=== PATIENT | male | born 1975 | race Caucasian/White ===

== ENCOUNTER 2016-09-12 06:55 | Emergency (ER) | payer MEDICAID ==
[2016-09-12 07:03] VITALS: RESP 16
--- NOTE | 2016-09-12 08:11 | C.PDOC ---
History Of Present Illness 40-year-old male, presents to the emergency department with complaints of left- upper quadrant abdominal pain associated with nausea that started two hours ago. Patient states he took Tylenol#3 last night, which was given to him by pain management. He denies vomiting, diarrhea, fevers/chills, shortness of breath, chest pain, back pain, dizziness. Time Seen by Provider: 09/12/16 07:11 Chief Complaint (Nursing): Abdominal Pain History Per: Patient History/Exam Limitations: no limitations Severity: Mild Location Of Pain/Discomfort: LUQ Quality Of Discomfort: "Pain" Associated Symptoms: Nausea. denies: Vomiting, Diarrhea Past Medical History Reviewed: Historical Data, Nursing Documentation, Vital Signs Vital Signs: Last Vital Signs Temp 97.7 F 09/12/16 08:15 Pulse 74 09/12/16 08:15 Resp 16 09/12/16 08:15 BP 117/69 09/12/16 08:15 Pulse Ox 97 09/12/16 09:00 - Medical History PMH: Back Problems - [facility] Procedures INJECT/INFUSE NEC (09/11/14) Family History: States: No Known Family Hx - Social History Hx Tobacco Use: Yes Hx Alcohol Use: Yes Hx Substance Use: Yes - Immunization History Hx Tetanus Toxoid Vaccination: Yes Hx Influenza Vaccination: Yes Hx Pneumococcal Vaccination: Yes Review Of Systems Except As Marked, All Systems Reviewed And Found Negative. Constitutional: Negative for: Fever, Chills Cardiovascular: Negative for: Chest Pain, Palpitations Respiratory: Negative for: Cough, Shortness of Breath Gastrointestinal: Positive for: Nausea, Abdominal Pain. Negative for: Vomiting , Diarrhea, Constipation Musculoskeletal: Negative for: Back Pain Skin: Negative for: Rash Neurological: Negative for: Headache, Dizziness Physical Exam - Physical Exam Appears: Well, Non-toxic, No Acute Distress Skin: Warm, Dry, No Rash Eye(s): bilateral: Normal Inspection Oral Mucosa: Moist Chest: Symmetrical Cardiovascular: Rhythm Regular Respiratory: Normal Breath Sounds, No Rales, No Rhonchi, No Wheezing Gastrointestinal/Abdominal: Bowel Sounds, Soft, Tenderness (MILD, EPIGASTRIC/LUQ ), No Guarding, No Rebound, Other ((-)McBurney's. (-)Domingo's.) Back: No CVA Tenderness Extremity: Normal ROM Neurological/Psych: Oriented x3 ED Course And Treatment O2 Sat by Pulse Oximetry: 97 (RA) Pulse Ox Interpretation: Normal Progress Note: Plan: Pt given PO Zofran, PO Pepcid, and IM Bentyl. Pt PO challenged. Reevaluation Time: 08:10 Reassessment Condition: Improved (Patient reassessed, is resting comfortably, in no current pain/distress. He states he is feeling better. On exam, abdomen is soft and nontender. Patient given rxs for pepcid and zofran, and was instructed to stop taking tylenol#3 and follow up with pain management for medication change. He understands he should return to ED if symptoms worsen.) Disposition Counseled Patient/Family Regarding: Diagnosis, Need For Followup, Rx Given - Disposition Referrals: Shaik Ortiz MD [Staff Provider] - Disposition: HOME/ ROUTINE Disposition Time: 08:10 Condition: STABLE Additional Instructions: FOLLOW UP WITH YOUR PAIN MANAGEMENT DOCTOR FOR POSSIBLE MEDICATION CHANGE USE MEDICATION NEEDED RETURN TO ER IF SYMPTOMS WORSEN Prescriptions: Famotidine [Pepcid] 20 mg PO BID PRN #15 tab PRN Reason: abdominal Ondansetron [Zofran Odt] 4 mg PO Q8 PRN #10 odt PRN Reason: Nausea/Vomiting Forms: General Discharge Instructions Print Language: GHANAIAN - POA Present On Arrival: None - Clinical Impression Clinical Impression: Abdominal pain, Nausea, Medication side effect - Scribe Statement The provider has reviewed the documentation as recorded by the Ilsa Prather All medical record entries made by the Scribe were at my direction and personally dictated by me. I have reviewed the chart and agree that the record accurately reflects my personal performance of the history, physical exam, medical decision making, and the department course for this patient. I have also personally directed, reviewed, and agree with the discharge instructions and disposition.
[2016-09-12 08:51] VITALS: BP 117/69; PULSE 74; TEMP 97.7
[2016-09-12 08:54] VITALS: O2SAT 97
== END 2016-09-12 08:16 | disposition home or self-care (01) ==
LOC: C.ER 06:55
DX: R10.12 Left upper quadrant pain (principal); R11.0 Nausea; T40.2X5A Adverse effect of other opioids, initial encounter; Y92.009 Unspecified place in unspecified non-institutional (private) residence as the place of occurrence of the external cause
CPT/HCPCS: 96372; 99285; J0500

== ENCOUNTER 2016-10-02 17:22 | Emergency (ER) | payer MEDICAID ==
[2016-10-02] MEDS ORDERED: Naloxone 0.4 mg/ml Inj (Adult) ONE (17:30)
[2016-10-02] MEDS ORDERED: Sodium Chloride 0.9% 1,000 ML IV ONE (17:43)
[2016-10-02] MEDS ORDERED: Naloxone 0.4 mg/ml Inj (Adult) IVP STA (17:43)
[2016-10-02 17:44] VITALS: BMI 25.1
[2016-10-02 17:52] LABS: BASO % 0.3 % (0.0-2.0); EOS # 0.1 K/uL (0.0-0.7); EOS % 0.9 % (0.0-4.0); HEMATOCRIT 49.5 % (35.0-51.0); LYMPH # 1.6 K/uL (1.0-4.3); LYMPH % 13.5 % (20.0-40.0); MEAN CORPUSCULAR HGB CONC 32.6 g/dL (33.0-37.0); MEAN PLATELET VOLUME 8.9 fL (7.2-11.7); MONO % 8.4 % (0.0-10.0); RED CELL DISTRIBUTION WIDTH 13.4 % (11.5-14.5)
[2016-10-02 17:53] LABS: MEAN CELL VOLUME 95.1 fL (80.0-94.0); WHITE BLOOD COUNT 11.6 K/uL (4.8-10.8)
[2016-10-02 17:59] LABS: CHLORIDE 96 mmol/L (98-107); POTASSIUM 4.1 mmol/L (3.6-5.2); SODIUM 136 mmol/L (132-148)
[2016-10-02 18:01] LABS: GFR AFRICAN-AMERICAN > 60
[2016-10-02 18:02] LABS: ALB/GLOB RATIO 1.2 (1.0-2.1); ALKALINE PHOSPHATASE 58 U/L (38-126); ALT/SGPT 29 U/L (21-72); AST/SGOT 33 U/L (17-59); BILIRUBIN,TOTAL 0.6 mg/dL (0.2-1.3); BLOOD UREA NITROGEN 13 mg/dL (9-20); CALCIUM 7.7 mg/dl (8.6-10.4); CARBON DIOXIDE 25 mmol/L (22-30); GLUCOSE,RANDOM 220 mg/dL (75-110); TOTAL PROTEIN 7.9 g/dL (6.3-8.3)
[2016-10-02 18:03] LABS: ALCOHOL SERUM < 10 mg/dl (0-10)
[2016-10-02 18:53] VITALS: RESP 16
[2016-10-02 19:05] LABS: RBC URINE 3 /hpf (0-3); URINE BACTERIA RARE (<OCC); URINE BILIRUBIN NEGATIVE (NEGATIVE); URINE BLOOD NEGATIVE (NEGATIVE); URINE COLOR Yellow (YELLOW); URINE GLUCOSE (UA) NORMAL (Normal); URINE KETONE NEGATIVE (NEGATIVE); URINE LEUKOCYTE ESTERASE NEG Leu/uL (Negative); URINE PROTEIN 1+ mg/dL (NEGATIVE)
[2016-10-02 19:10] LABS: WBC URINE 5 /hpf (0-5)
[2016-10-02 20:22] VITALS: BP 93/63; PULSE 82; TEMP 98.3; O2SAT 96
--- NOTE | 2016-10-02 20:49 | C.PDOC ---
History Of Present Illness 40 y/o male presents to emergency department via BLS, with ventilations being assisted, who reportedly collapsed at doctor's office just prior to arrival. Patient was given Narcan 2mg intranasally by EMS. On arrival to emergency department, patient woke up, but is still somnolent. Nasal trumpet applied by EMS. Chief Complaint (Nursing): Substance Abuse History Per: EMS History/Exam Limitations: no limitations Onset/Duration Of Symptoms: Hrs Current Symptoms Are (Timing): Better Recent travel outside of the [place]: No Past Medical History Reviewed: Historical Data, Nursing Documentation, Vital Signs Vital Signs: Last Vital Signs Temp 98.3 F 10/02/16 20:21 Pulse 82 10/02/16 20:21 Resp 16 10/02/16 20:21 BP 93/63 L 10/02/16 20:21 Pulse Ox 96 10/02/16 20:48 - Medical History PMH: Back Problems - [facility] Procedures INJECT/INFUSE NEC (09/11/14) Family History: States: Unknown Family Hx - Social History Hx Tobacco Use: Yes Hx Alcohol Use: Yes Hx Substance Use: Yes - Immunization History Hx Tetanus Toxoid Vaccination: Yes Hx Influenza Vaccination: Yes Hx Pneumococcal Vaccination: Yes Review Of Systems Except As Marked, All Systems Reviewed And Found Negative. Constitutional: Negative for: Fever, Chills Cardiovascular: Negative for: Chest Pain, Palpitations Respiratory: Negative for: Cough, Shortness of Breath, Wheezing Gastrointestinal: Negative for: Nausea, Vomiting Skin: Negative for: Rash Neurological: Negative for: Dizziness Physical Exam - Physical Exam Appears: Non-toxic, Other (somnolent) Skin: Warm, Dry Head: Atraumatic, Normacephalic Eye(s): bilateral: PERRL, EOMI, Other (pinpoint pupils) Nose: Other (small ammount of blood in left nare, secondary to nasal trumpet) Oral Mucosa: Moist Neck: Supple Chest: Symmetrical Cardiovascular: Rhythm Regular Respiratory: Normal Breath Sounds, No Rales, No Rhonchi, No Wheezing Gastrointestinal/Abdominal: Soft, No Tenderness Back: Normal Inspection Extremity: Normal ROM, Capillary Refill (< 2 sec. ) Neurological/Psych: Oriented x3 ED Course And Treatment - Laboratory Results Result Diagrams: 10/02/16 17:48 10/02/16 17:48 ECG: Interpreted By Me ECG Rhythm: Sinus Rhythm Interpretation Of ECG: normal axis, normal interval, no prolonged QT Rate From EC (bpm) O2 Sat by Pulse Oximetry: 96 (RA) Pulse Ox Interpretation: Normal Medical Decision Making Medical Decision Making: Plan: * 0.4 mg Narcan IVP * bloodwork * IVFs * Reassess Progress Notes: Patient given Narcan 0.4 mg IVP, with positive result. Disposition - [facility] - Disposition: HOME/ ROUTINE Disposition Time: 19:50 Condition: IMPROVED Additional Instructions: Thank you for letting us take care of you today. Your provider was Dr. Deleon. You were treated for drug abuse. The emergency medical care you received today was directed at your acute symptoms. If you were prescribed any medication, please fill it and take as directed. It may take several days for your symptoms to resolve. Return to the Emergency Department if your symptoms worsen, do not improve, or if you have any other problems. Please contact your doctor or call one of the physicians/clinics you have been referred to that are listed on the Patient Visit Information form that is included in your discharge packet. Bring any paperwork you were given at discharge with you along with any medications you are taking to your follow up visit. Our treatment cannot replace ongoing medical care by a primary care provider (PCP) outside of the emergency department. Thank you for allowing the [facility] team to be part of your care today. Follow up with your doctor in 2-3 days for re-evaluation. Stop using illegal drugs. Instructions: Polysubstance Abuse (ED) - Clinical Impression Clinical Impression: Drug abuse - Scribe Statement The provider has reviewed the documentation as recorded by the Shaguftaibchloe Mcgowan All medical record entries made by the Shaguftaibe were at my direction and personally dictated by me. I have reviewed the chart and agree that the record accurately reflects my personal performance of the history, physical exam, medical decision making, and the department course for this patient. I have also personally directed, reviewed, and agree with the discharge instructions and disposition.
== END 2016-10-02 21:05 | disposition home or self-care (01) ==
LOC: C.ER 17:22
DX: F19.10 Other psychoactive substance abuse, uncomplicated (principal)
CPT/HCPCS: 80053; 80320; 80324; 80329; 80345; 80346; 80349; 80353; 80358; 80361; 81001; 82140; 82550; 83992; 85025; 96361; 96374; 99285; J2310; J7040

== ENCOUNTER 2017-04-11 11:49 | Emergency (ER) | payer MEDICAID ==
[2017-04-11 11:49] VITALS: BMI 25.1
[2017-04-11 11:57] VITALS: RESP 18; TEMP 97.9; O2SAT 98
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
[2017-04-11] MEDS ORDERED: Lidocaine 5% Patch TD STA (12:27)
[2017-04-11] MEDS ORDERED: Lidocaine 5% Patch TD ONE (12:31)
[2017-04-11 12:39] VITALS: BP 126/72; PULSE 78
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
== END 2017-04-11 12:39 | disposition home or self-care (01) ==
LOC: C.ER 11:49
DX: S22.32XA Fracture of one rib, left side, initial encounter for closed fracture (principal); Y04.0XXA Assault by unarmed brawl or fight, initial encounter; H11.31 Conjunctival hemorrhage, right eye

== ENCOUNTER 2017-04-15 11:26 | Emergency (ER) | payer MEDICAID ==
[2017-04-15 11:26] VITALS: BMI 25.1
[2017-04-15 11:41] VITALS: TEMP 97.7
[2017-04-15] MEDS ORDERED: Dextrose 50% SYRINGE Inj (50 ml) IVP STA (13:06)
[2017-04-15 13:28] VITALS: BP 132/88; PULSE 63; RESP 17; O2SAT 99
--- NOTE | 2017-04-15 13:42 | RAD ---
HISTORY: chest pain COMPARISON: Comparison is made to 04/11/2017 TECHNIQUE: Chest PA and lateral FINDINGS: LUNGS: No active pulmonary disease. PLEURA: No significant pleural effusion identified. No pneumothorax apparent. CARDIOVASCULAR: Normal. OSSEOUS STRUCTURES: No significant abnormalities. VISUALIZED UPPER ABDOMEN: Normal. OTHER FINDINGS: None. IMPRESSION: No active disease.
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
--- NOTE | 2017-04-17 16:56 | CARD ---
APPROVED REPORT EKG Measurement Heart [id number] <Conclusion> Normal sinus rhythm Normal ECG
== END 2017-04-15 13:44 | disposition home or self-care (01) ==
LOC: C.ER 11:26
DX: R07.89 Other chest pain (principal)

== ENCOUNTER 2017-04-23 20:29 | Inpatient (IN) | payer MEDICAID ==
[2017-04-23 20:30] VITALS: BMI 25.1
[2017-04-23 21:18] LABS: BASO % 0.1 % (0.0-2.0); EOS % 0.1 % (0.0-4.0); HEMATOCRIT 45.8 % (35.0-51.0); LYMPH # 1.9 K/uL (1.0-4.3); LYMPH % 14.1 % (20.0-40.0); MEAN CELL VOLUME 92.6 fL (80.0-94.0); MEAN CORPUSCULAR HEMOGLOBIN 31.1 pg (27.0-31.0); MEAN CORPUSCULAR HGB CONC 33.6 g/dL (33.0-37.0); MEAN PLATELET VOLUME 7.9 fL (7.2-11.7); MONO # 1.2 K/uL (0.0-0.8); MONO % 8.7 % (0.0-10.0); RED CELL DISTRIBUTION WIDTH 13.6 % (11.5-14.5); WHITE BLOOD COUNT 13.4 K/uL (4.8-10.8)
[2017-04-23 21:26] LABS: RBC URINE 1 /hpf (0-3); URINE BACTERIA RARE (<OCC); URINE BILIRUBIN NEGATIVE (NEGATIVE); URINE BLOOD NEGATIVE (NEGATIVE); URINE COLOR Yellow (YELLOW); URINE GLUCOSE (UA) NORMAL (Normal); URINE HYALINE CAST 0-2 /lpf (0-2); URINE KETONE NEGATIVE (NEGATIVE); URINE LEUKOCYTE ESTERASE NEG Leu/uL (Negative); URINE PROTEIN NEGATIVE (NEGATIVE); URINE UROBILINOGEN NORMAL mg/dL (0.2-1.0); WBC URINE 1 /hpf (0-5)
[2017-04-23 21:38] LABS: ALCOHOL SERUM < 10 mg/dl (0-10); ALKALINE PHOSPHATASE 84 U/L (38-126); ALT/SGPT 162 U/L (21-72); AST/SGOT 69 U/L (17-59); BILIRUBIN,TOTAL 0.7 mg/dL (0.2-1.3); BLOOD UREA NITROGEN 16 mg/dL (9-20); CALCIUM 8.3 mg/dl (8.6-10.4); CARBON DIOXIDE 31 mmol/L (22-30); CHLORIDE 97 mmol/L (98-107); GFR AFRICAN-AMERICAN > 60; GLUCOSE,RANDOM 112 mg/dL (75-110); POTASSIUM 4.1 mmol/L (3.6-5.2); SODIUM 137 mmol/L (132-148); TOTAL PROTEIN 8.4 g/dL (6.3-8.3)
[2017-04-23 21:50] LABS: ALB/GLOB RATIO 1.1 (1.0-2.1)
--- NOTE | 2017-04-23 22:59 | C.PDOC ---
History Of Present Illness Patient presents to ED c/o feeling depressed, states he has been having thoughts of hurting himself today. He admits to heroin use, states he used 8 bags today. Patient states he has h/o depression and PTSD, does not have psychiatrist and has not been on medications "for years" (previously on Remeron , Trazodone). Patient denies physical complaints. Time Seen by Provider: 04/23/17 20:41 Chief Complaint (Nursing): Psychiatric Evaluation History Per: Patient History/Exam Limitations: no limitations Onset/Duration Of Symptoms: Persistent Current Symptoms Are (Timing): Worse (today) Modifying Factor(s): Narcotics Severity: Moderate Associated Symptoms: Depression, Suicidal Thoughts Involuntary Hold By: Emergency Physician Past Medical History Reviewed: Historical Data, Nursing Documentation, Vital Signs Vital Signs: Last Vital Signs Temp 97.6 F 04/29/17 06:45 Pulse 61 04/29/17 06:45 Resp 18 04/29/17 06:45 BP 99/65 L 04/29/17 06:45 Pulse Ox 97 04/27/17 07:27 - Medical History PMH: Back Problems - [facility] Procedures INJECT/INFUSE NEC (09/11/14) Family History: States: No Known Family Hx - Social History Hx Tobacco Use: Yes Hx Alcohol Use: Yes Hx Substance Use: No - Immunization History Hx Tetanus Toxoid Vaccination: No Hx Influenza Vaccination: No Hx Pneumococcal Vaccination: No Review Of Systems Except As Marked, All Systems Reviewed And Found Negative. Constitutional: Negative for: Fever, Chills Cardiovascular: Negative for: Chest Pain, Palpitations Respiratory: Negative for: Shortness of Breath Gastrointestinal: Negative for: Nausea, Vomiting, Abdominal Pain, Diarrhea Psych: Positive for: Depression, Suicidal ideation Physical Exam - Physical Exam Appears: Well, Non-toxic, No Acute Distress, Other (flat affect) Skin: Normal Color, Warm, Dry Eye(s): bilateral: Normal Inspection Oral Mucosa: Moist Cardiovascular: Rhythm Regular Respiratory: Normal Breath Sounds, No Rales, No Rhonchi, No Wheezing Gastrointestinal/Abdominal: Normal Exam, Bowel Sounds, Soft, No Tenderness Extremity: Bilateral: Atraumatic Neurological/Psych: Oriented x3 ED Course And Treatment - Laboratory Results Result Diagrams: 04/23/17 21:13 04/23/17 21:13 O2 Sat by Pulse Oximetry: 99 (RA) Pulse Ox Interpretation: Normal Progress Note: Blood work, UA, UDS ordered and reviewed. 11:15PM - Patient medically cleared. Pending crisis. 1:15AM - Patient accepted for psych admission - opiate dependence + depression. Disposition - Disposition Disposition: HOSPITALIZED Disposition Time: 01:15 Condition: STABLE - Clinical Impression Clinical Impression: Opiate dependence, Depression Decision To Admit - Pt Status Changed To: Hospital Disposition Of: Inpatient - Admit Certification Admit to Inpatient:: After my assessment, the patient will require hospitalization for at least two midnights. This is because of the severity of symptoms shown, intensity of services needed, and/or the medical risk in this patient being treated as an outpatient. - InPatient: Physician Admission Certification: I certify that this patient requires 2 or more midnights of care for the following reason:: see notes - . Bed Request Type: Psychiatry Admitting Physician: Michelle Hernandez Patient Diagnosis: Opiate dependence, Depression
--- NOTE | 2017-04-24 02:07 | PCM.BM ---
<Fito Garcia - Last Filed: 04/24/17 02:03> Treatment Plan Problems - Problems identified on initial assessmt Depression Date Initiated: 04/24/17 Time Initiated: :55 Assessment reference: NA Status: Active Suicidal Ideation Date Initiated: 04/24/17 Time Initiated: 01:55 Assessment reference: NA Status: Active Substance Abuse Date Initiated: 04/24/17 Time Initiated: :55 Assessment reference: NA Status: Active Treatment assets and liabiliti Patient Assests: adapts well, cooperative, self-reliant, ADL independent, negotiates basic needs Patient Liabilities: financial problems, substance abuse - Milieu Protocol Maintain good personal hygiene: daily Encourage regular showers, daily Remind patient to perform daily oral care, daily Assist patient to perform ADL's Maintain personal safety: every shift Educate patient to report safety concerns to staff, every shift Monitor environment for contraband/sharps Medication safety: Monitor for expected outcome, potential side effects: every shift, Assess barriers to learning: every shift, Assess readiness for medication education: every shift <Marine Payne - Last Filed: 04/29/17 10:08> Family Contact Family involvement: Family/SO is involved Family contact: Patient declines to allow family contact at present Discharge/Continuing Care - Education Needs Education Needs: Patient Medication, Patient Coping Skills, Patient Community resources - Discharge Discharge Criteria: Tolerates medication w/o severe side effects, Free of Suicidal thoughts, No longer exhibiting s/s of withdrawal Discharge to:: Home - Treatment Team Participation Discussed with Family/SO: No Was Patient/Family/SO present at Treatment Team Meeting: Yes
--- NOTE | 2017-04-24 09:01 | PCM.PSYCH ---
Initial Psychiatric Evaluation - Initial Psychiatric Evaluation Type of Admission: Voluntary Legal Status: Capacity Chief Complaint (in patient's own words): I was feeling depressed and suicidal.' History of Present Illness and Precipitating Events: Pt. is a 41 y/o HM, currently unemployed and lives alone came to the with depressed mood and suicidal ideation with intent to OD on Heroin. As per the ED notes, 'pt. reports that he was last hospitalized in 2006 due to depression and suicidal attempt. Pt. reports feeling very depressed for the last couple of years because his family is not around. Pt does not have his mother. and his mother to 10 years ago while he was incarcerated. Pt. reports that he started to use drugs at an early age. Pt. reports that he was also involved in gang activities. Pt. was also charged with manslaughter and spent 8 years incarcerated. Pt. reports that his family is no longer supportive of him and Pt. feels alone. Pt. also has four children. The oldest is 21 years old and the youngest is 9 years old. Pt. reports that he feels hopeless because he does not have a job. Pt. appeared his stated age. Pt. was cooperative, alert and oriented x4. Pt. had number tattoos on arms, neck and hands. Pt. maintained eye contact during this assessment. Pt. speech was normal volume and rate. Pt. mood was depressed and his affect was labile. Pt. reports not sleeping for the last couple of days. Pt. denies any A/V/T hallucinations. Pt. admits to feeling suicidal with intent to OD on Heroin. Pt. denies any Homicidal ideation. 06/25/16 05:56 - Nurse Simple by Randall Bhandari Acct Num: [id number] : 1975 Patient Age: [phone]--admitted patient for depression and opiod abuse. patients is well groomed , calm and cooperative. able to answer questions appropriately and accurately. admits having initial plans of suicidal thoughts and hurting himself prior to admission, place on 1:1 watch in the Er. 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 noted with good insight to his problems when he stated that he wants to get better with appropriate help. checked himself in for detox from opiod abuse 3x in the past but havent followed up with a psychiatrist anymore. oriented patient to room and environment. [ End ] Current Medications: Active Medications Generic Name Dose Route Start Last Admin Trade Name Freq PRN Reason Stop Dose Admin Hydroxyzine HCl 50 mg 04/24/17 02:11 04/24/17 02:32 Atarax PO 50 mg ONCE PRN Administration Anxiety Methadone HCl 20 mg 04/24/17 09:00 Methadone PO 04/24/17 09:01 ONCE ONE Methadone HCl 5 mg 04/24/17 09:00 Methadone PO 04/24/17 09:01 ONCE ONE Past Psychiatric History - Past Psychiatric History Previous Treatment History: Inpatient Pertinent Medical Hx (Current Medical&Sleep Prob, Allergies): Allergies Allergy/AdvReac Type Severity Reaction Status Date / Time shellfish derived Allergy Severe SWELLING Verified 04/23/17 20:32 seafood Allergy Severe SWELLING Uncoded 04/23/17 20:32 Lidocaine 5% [Lidoderm] 1 ea TD PRN PRN #10 patch 04/11/17 Naproxen 500 mg PO BID #30 tab 04/11/17 Acetaminophen with Codeine [Tylenol with Codeine #3 Tablet] 1 each PO Q6 PRN # 15 tablet 04/15/17 Review of Systems - Review of Systems All systems: reviewed and no additional remarkable complaints except - Psychiatric Psychiatric: Anxiety, Irritability, Suicidal Ideation Mental Status Examination - Personal Presentation Personal Presentation: Looks stated age - Affect Affect: Constricted, Depressed - Motor Activity Motor Activity: Calm - Reliability in Providing Information Reliability in Providing Information: Fair - Speech Speech: Organized - Mood Mood: Depressed, Anxious - Formal Thought Process Formal Thought Process: No Impairment - Obsessions/Compulsions Obsessions: No Compulsions: No - Cognitive Functions Orientation: Person, Place, Situation, Time Sensorium: Alert Attention/Concentration: Attentive Abstract Thinking: Bryant Estimate of Intelligence: Below average Judgement: Imparied, as evidence by: Poor judgement, Imparied, as evidence by: Lack of insight into illness - Risk Risk: Suicidal, Withdrawal, Diminished functioning DSM 5 DX - DSM 5 DSM 5 Diagnosis: Major depressive disorder recurrent severe without psychotic features Opioid use disorder severe Opioid withdrawal Major depressive disorder recurrent severe without psychotic features CBT Psychoeducation Supportive therapy, group therapy, individual therapy Neurontin 300 mg by mouth 2 times a day Trazodone 50 mg by mouth daily at bedtime Opioid use disorder severe Opioid withdrawal CBT Psychoeducation Supportive therapy, individual therapy Use MT for abstinence Clonidine when necessary Methadone taper - Recommended/Plan of Treatment Treatment Recommendations and Plan of Treatment: Major depressive disorder recurrent severe without psychotic features Opioid use disorder severe Opioid withdrawal
[2017-04-24] MEDS ORDERED: Magnesium Hydroxide Susp 30 ml UD PO ONE (17:23)
[2017-04-24] MEDS ORDERED: Aluminum Hydroxide/Magnesium Hydroxide Susp (30 mL) PO PRN (21:45)
[2017-04-25] MEDS: Magnesium Hydroxide Susp 30 ml UD PO PRN (17:22)
--- NOTE | 2017-04-26 15:38 | PCM.PYCHPN ---
Psychiatric Progress Note - Psychiatric Progress Note Patient seen today, length of contact: 17 Patient Chief Complaint: I'm alright but I should be home" Problems Identified/Issues Discussed: This patient was seen, chart reviewed, and case discussed with staff. Staff reports that the patient has been social and talkative. He reports better sleep. He states that he is still experiencing feelings of depression. He states that he has been feeling depressed because he wants to be home with his and children. Pt was counseled that he is here to get better for his and children. Pt denies anxiety. He denies suicidal ideations and homicidal ideations. He denies any auditory or visual hallucinations. He states that his appetite is better. Patient does not appear disheveled. He is cooperative. Patient is compliant with medications and denies any side effects. Symptoms are improving but need more time to stabilize. Support and psychoeducation given. Mental Status Examination - Cognitive Function Orientation: Person, Place, Situation, Time Memory: Intact Attention: WNL Concentration: WNL Association: WNL Fund of Knowledge: WNL - Mood Mood: Depressed - Affect Affect: Broad - Speech Speech: Soft - Formal Thought Process Formal Thought Process: No Impairment - Suicidal Ideation Suicidal Ideation: No - Homicidal Ideation Homicidal Ideation: No Goal/Treatment Plan - Goal/Treatment Plan Need for Continued Stay: Severe depression anxiety, Discharge may exacerbated symptoms, Severe functional impairment
[2017-04-26] MEDS: Magnesium Hydroxide Susp 30 ml UD PO PRN (17:25)
--- NOTE | 2017-04-28 11:25 | PCM.PYCHPN ---
Psychiatric Progress Note - Psychiatric Progress Note Patient seen today, length of contact: 17 min Patient Chief Complaint: I was feeling depressed and suicidal.' Problems Identified/Issues Discussed: This patient was seen, chart reviewed, and case discussed with staff. Staff reports that the patient has been social and talkative. He reports better sleep. He states that he is still experiencing feelings of depression. He states that he has been feeling depressed because he wants to be home with his and children. Pt was counseled that he is here to get better for his and children. Pt denies anxiety. He denies suicidal ideations and homicidal ideations. He denies any auditory or visual hallucinations. He states that his appetite is better. Patient does not appear disheveled. He is cooperative. Patient is compliant with medications and denies any side effects. Symptoms are improving but need more time to stabilize. Support and psychoeducation given. Mental Status Examination - Cognitive Function Orientation: Person, Place, Situation, Time Memory: Intact Attention: WNL Concentration: WNL Association: WNL Fund of Knowledge: WNL - Mood Mood: Depressed - Affect Affect: Broad - Speech Speech: Soft - Formal Thought Process Formal Thought Process: No Impairment - Suicidal Ideation Suicidal Ideation: No - Homicidal Ideation Homicidal Ideation: No Goal/Treatment Plan - Goal/Treatment Plan Need for Continued Stay: Severe depression anxiety, Discharge may exacerbated symptoms, Severe functional impairment
[2017-04-29 06:46] VITALS: BP 99/65; PULSE 61; RESP 18; TEMP 97.6
--- NOTE | 2017-04-29 10:37 | PCM.PYCHDC ---
Mental Status Examination - Mental Status Examination Orientation: Person, Place, Situation, Time Memory: Intact Mood: Neutral Affect: Constricted Speech: Soft Attention: WNL Concentration: WNL Association: WNL Fund of Knowledge: WNL Formal Thought Process: No Impairment Description of patient's judgement and insight: good, fair Psychotic Thoughts and Behaviors: denies any AVH Suicidal Ideation: No Current Homicidal Ideation?: No Discharge Summary - Discharge Note Reason for Hospitalization: Pt. is a 41 y/o HM, currently unemployed and lives alone came to the with depressed mood and suicidal ideation with intent to OD on Heroin. As per the ED notes, 'pt. reports that he was last hospitalized in 2006 due to depression and suicidal attempt. Pt. reports feeling very depressed for the last couple of years because his family is not around. Pt does not have his mother. and his mother to 10 years ago while he was incarcerated. Pt. reports that he started to use drugs at an early age. Pt. reports that he was also involved in gang activities. Pt. was also charged with manslaughter and spent 8 years incarcerated. Pt. reports that his family is no longer supportive of him and Pt. feels alone. Pt. also has four children. The oldest is 21 years old and the youngest is 9 years old. Pt. reports that he feels hopeless because he does not have a job. Pt. appeared his stated age. Pt. was cooperative, alert and oriented x4. Pt. had number tattoos on arms, neck and hands. Pt. maintained eye contact during this assessment. Pt. speech was normal volume and rate. Pt. mood was depressed and his affect was labile. Pt. reports not sleeping for the last couple of days. Pt. denies any A/V/T hallucinations. Pt. admits to feeling suicidal with intent to OD on Heroin. Pt. denies any Homicidal ideation. 06/25/16 05:56 - Nurse Simple by Randall Bhandari Num: [id number] : 1975 Patient Age: 41 [phone]--admitted patient for depression and opiod abuse. patients is well groomed , calm and cooperative. able to answer questions appropriately and accurately. admits having initial plans of suicidal thoughts and hurting himself prior to admission, place on 1:1 watch in the Er. 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 noted with good insight to his problems when he stated that he wants to get better with appropriate help. checked himself in for detox from opiod abuse 3x in the past but havent followed up with a psychiatrist anymore. oriented patient to room and environment. [ End ] Consultations:: List each consultation separately and include: 1. Reason for request. 2. Findings. 3. Follow-up Summary of Hospital Course include:: 1. Description of specific treatment plan utilized for patients during their course of treatmen. 2. Summarize the time- course for resolution of acute symptoms and/or regressed behaviors. 3. Describe issues identified and worked on during hospitalization. 4. Describe medication utilized. 5. Describe medical problems identified and treated. 6. Reassessment of suicide risk Summary of Hospital Course: Pt. is a 41 y/o HM, currently unemployed and lives alone came to the with depressed mood and suicidal ideation with intent to OD on Heroin. As per the ED notes, 'pt. reports that he was last hospitalized in 2006 due to depression and suicidal attempt. Pt. reports feeling very depressed for the last couple of years because his family is not around. Pt does not have his mother. and his mother to 10 years ago while he was incarcerated. Pt. reports that he started to use drugs at an early age. Pt. reports that he was also involved in gang activities. Pt. was also charged with manslaughter and spent 8 years incarcerated. Pt. reports that his family is no longer supportive of him and Pt. feels alone. Pt. also has four children. The oldest is 21 years old and the youngest is 9 years old. Pt. reports that he feels hopeless because he does not have a job. Pt. appeared his stated age. Pt. was cooperative, alert and oriented x4. Pt. had number tattoos on arms, neck and hands. Pt. maintained eye contact during this assessment. Pt. speech was normal volume and rate. Pt. mood was depressed and his affect was labile. Pt. reports not sleeping for the last couple of days. Pt. denies any A/V/T hallucinations. Pt. admits to feeling suicidal with intent to OD on Heroin. Pt. denies any Homicidal ideation. 06/25/16 05:56 - Nurse Simple by Davidellieluis angelRandall Chacon [facility] Num: [id number] : 1975 Patient Age: 41 [phone]--admitted patient for depression and opiod abuse. patients is well groomed , calm and cooperative. able to answer questions appropriately and accurately. admits having initial plans of suicidal thoughts and hurting himself prior to admission, place on 1:1 watch in the Er. 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 noted with good insight to his problems when he stated that he wants to get better with appropriate help. checked himself in for detox from opiod abuse 3x in the past but havent followed up with a psychiatrist anymore. oriented patient to room and environment. [ End ] - Final Diagnosis (DSM 5) Condition upon Discharge: GOOD DSM 5: Major depressive disorder recurrent severe without psychotic features Opioid use disorder severe Opioid withdrawal Disposition: HOME/ ROUTINE Follow-up Treatment Plan: Major depressive disorder recurrent severe without psychotic features Opioid use disorder severe Opioid withdrawal Prescriptions/Medication Reconciliation: Gabapentin [Neurontin] 300 mg PO BID #60 cap traZODone [Desyrel] 50 mg PO HS PRN #30 tab PRN Reason: Insomnia
[2017-04-29 17:06] VITALS: O2SAT 99
== END 2017-04-29 12:40 | disposition home or self-care (01) | DRG 744 ==
LOC: SUPCPDRO 20:29 → C.ER 20:29 → C.5E 04-24 01:15
PROVIDERS: ADMIT Psychiatry & Neurology Psychiatry; ATTEND Psychiatry & Neurology Psychiatry
PROC: HZ2ZZZZ Detoxification Services for Substance Abuse Treatment (ICD-10-PCS; principal; 2017-04-24)
DX: F11.23 Opioid dependence with withdrawal (principal); F33.2 Major depressive disorder, recurrent severe without psychotic features; R45.851 Suicidal ideations; F43.10 Post-traumatic stress disorder, unspecified; F17.210 Nicotine dependence, cigarettes, uncomplicated

== ENCOUNTER 2017-05-13 19:01 | Emergency (ER) | payer MEDICAID ==
[2017-05-13 19:01] VITALS: BMI 25.1
[2017-05-13 19:09] VITALS: BP 131/79; PULSE 81; RESP 20; TEMP 97.5; O2SAT 95
--- NOTE | 2017-05-13 19:34 | C.PDOC ---
History Of Present Illness 41 year old male, whose PMHx includes herniated discs, presents to the ED for evaluation of lower back pain which began after lifting a heavy box at work earlier today. Patient has been taking Tylenol for pain. He denies direct trauma , urinary/bowel incontinence, extremity numbness/weakness. Patient has a history of heroin abuse, but denies recent use. Time Seen by Provider: 05/13/17 19:20 Chief Complaint (Nursing): Back Pain History Per: Patient History/Exam Limitations: no limitations Onset/Duration Of Symptoms: Hrs Current Symptoms Are (Timing): Still Present Quality Of Discomfort: "Pain" Previous Symptoms: Back Pain Associated Symptoms: denies: Incontinence, New Weakness, New Numbness Additional History Per: Patient Past Medical History Reviewed: Historical Data, Nursing Documentation, Vital Signs Vital Signs: Last Vital Signs Temp 97.5 F L 05/13/17 19:04 Pulse 81 05/13/17 19:04 Resp 20 05/13/17 20:00 BP 131/79 05/13/17 19:04 Pulse Ox 95 05/13/17 21:34 - Medical History PMH: Back Problems Denies: Diabetes, Hepatitis, HIV, HTN, Seizures, Sexually Transmitted Disease Surgical History: No Surg Hx - [facility] Procedures DETOXIFICATION SERVICES FOR SUBSTANCE ABUSE TREATMENT (04/24/17) INJECT/INFUSE NEC (09/11/14) Family History: States: Unknown Family Hx - Social History Hx Tobacco Use: Yes Hx Alcohol Use: Yes Hx Substance Use: No - Immunization History Hx Tetanus Toxoid Vaccination: No Hx Influenza Vaccination: No Hx Pneumococcal Vaccination: No Review Of Systems Genitourinary: Negative for: Incontinence Musculoskeletal: Positive for: Back Pain (lower) Neurological: Negative for: Weakness, Numbness Physical Exam - Physical Exam Appears: Non-toxic, No Acute Distress, Other (sleepy) Skin: Normal Color, Warm, Dry, No Ecchymosis Head: Atraumatic, Normacephalic Eye(s): bilateral: Normal Inspection, EOMI Oral Mucosa: Moist Neck: Supple Chest: Symmetrical, No Deformity, No Tenderness Cardiovascular: Rhythm Regular Respiratory: Normal Breath Sounds Gastrointestinal/Abdominal: Soft, No Tenderness Back: No CVA Tenderness, No Vertebral Tenderness, Paraspinal Tenderness (lumbar) Extremity: Normal ROM, Capillary Refill (less than 2 seconds ) Neurological/Psych: Oriented x3, Normal Speech, Normal Cognition Gait: Steady ED Course And Treatment O2 Sat by Pulse Oximetry: 95 (on RA) Pulse Ox Interpretation: Normal Progress Note: Toradol IM administered. Patient refused XR upon offering. On reassessment, patient is resting comfortably, showing no signs of distress, and reports an improvement in his symptoms. Patient is ambulatory in the ED without distress and is stable for discharge. Patient is advised to follow up with PMD wihin 1-2 days for further evaluation. Disposition - Disposition Disposition: HOME/ ROUTINE Disposition Time: 19:31 Condition: STABLE Additional Instructions: Rest and ice the area. Follow up with PMD in 1-2 days. Prescriptions: Lidocaine 5% [Lidoderm] 1 ea TD PRN PRN #10 patch PRN Reason: Pain, Moderate (4-7) Naproxen [Naprosyn] 1 tab PO BID PRN #20 tab PRN Reason: Pain Instructions: Acute Low Back Pain (ED) Forms: [facility] ([place] Citizen) - Clinical Impression Clinical Impression: Low back strain - PA / ROOF TILER / Resident Statement MD/DO has reviewed & agrees with the documentation as recorded. - Scribe Statement The provider has reviewed the documentation as recorded by the Scribe (Aleksandra Odom) All medical record entries made by the Scribe were at my direction and personally dictated by me. I have reviewed the chart and agree that the record accurately reflects my personal performance of the history, physical exam, medical decision making, and the department course for this patient. I have also personally directed, reviewed, and agree with the discharge instructions and disposition.
== END 2017-05-13 20:00 | disposition home or self-care (01) ==
LOC: C.ER 19:01
DX: S39.012A Strain of muscle, fascia and tendon of lower back, initial encounter (principal); X50.0XXA Overexertion from strenuous movement or load, initial encounter; Y99.0 Civilian activity done for income or pay; Z87.891 Personal history of nicotine dependence
CPT/HCPCS: 96372; 99283; J1885

== ENCOUNTER 2017-05-30 21:23 | Inpatient (IN) | payer MEDICAID ==
[2017-05-30 21:23] VITALS: BMI 25.1
[2017-05-30 22:40] LABS: BASO % 0.4 % (0.0-2.0); EOS # 0.1 K/uL (0.0-0.7); HEMOGLOBIN 15.8 g/dL (12.0-18.0); LYMPH # 1.9 K/uL (1.0-4.3); LYMPH % 31.8 % (20.0-40.0); MEAN CELL VOLUME 93.2 fL (80.0-94.0); MEAN CORPUSCULAR HEMOGLOBIN 31.5 pg (27.0-31.0); MEAN CORPUSCULAR HGB CONC 33.8 g/dL (33.0-37.0); MEAN PLATELET VOLUME 7.4 fL (7.2-11.7); MONO # 0.9 K/uL (0.0-0.8); MONO % 14.4 % (0.0-10.0); NEUT # 3.1 K/uL (1.8-7.0); NEUT % 51.4 % (50.0-75.0); NRBC % 0.1 % (0.0-2.0); RED CELL DISTRIBUTION WIDTH 13.8 % (11.5-14.5)
[2017-05-30 22:41] LABS: WHITE BLOOD COUNT 6.1 K/uL (4.8-10.8)
[2017-05-30 22:42] LABS: URINE BILIRUBIN NEGATIVE (NEGATIVE); URINE BLOOD NEGATIVE (NEGATIVE); URINE CLARITY Clear (Clear); URINE COLOR Yellow (YELLOW); URINE GLUCOSE (UA) NORMAL (Normal); URINE LEUKOCYTE ESTERASE NEG Leu/uL (Negative); URINE NITRATE NEGATIVE (NEGATIVE); URINE PROTEIN NEGATIVE (NEGATIVE); URINE UROBILINOGEN NORMAL mg/dL (0.2-1.0)
[2017-05-30 22:43] LABS: BARBITURATES, UR NEGATIVE (NEGATIVE); BENZODIAZEPINES, UR NEGATIVE (NEGATIVE); PHENCYCLIDINE, UR NEGATIVE (NEGATIVE)
[2017-05-30 22:50] LABS: OPIATES, UR POSITIVE (NEGATIVE)
[2017-05-30 22:57] LABS: ACETAMINOPHEN < 10.0 ug/mL (10.0-30.0); ALB/GLOB RATIO 1.1 (1.0-2.1); ALT/SGPT 175 U/L (21-72); AST/SGOT 92 U/L (17-59); BLOOD UREA NITROGEN 16 mg/dL (9-20); CALCIUM 8.1 mg/dl (8.6-10.4); GFR AFRICAN-AMERICAN > 60; GFR NON-AFRICAN AMERICAN > 60; SALICYLATE < 1.0 mg/dL 1
--- NOTE | 2017-05-31 00:14 | C.PDOC ---
Time Seen by Provider: 05/30/17 21:38 Chief Complaint (Nursing): Psychiatric Evaluation History Per: Patient Onset/Duration Of Symptoms: Days Current Symptoms Are (Timing): Still Present Modifying Factor(s): Narcotics Severity: Moderate Associated Symptoms: Depression, Suicidal Thoughts Additional History Per: Prior Records Past Medical History Reviewed: Historical Data, Nursing Documentation, Vital Signs Vital Signs: Last Vital Signs Temp 97 F L 05/30/17 23:40 Pulse 80 05/30/17 23:40 Resp 20 05/30/17 23:40 BP 113/68 05/30/17 23:40 Pulse Ox 97 05/31/17 00:14 - Medical History PMH: Back Problems, Bipolar Disorder, Hepatitis (C) - [facility] Procedures DETOXIFICATION SERVICES FOR SUBSTANCE ABUSE TREATMENT (04/24/17) INJECT/INFUSE NEC (09/11/14) Family History: States: Unknown Family Hx - Social History Hx Tobacco Use: Yes Hx Alcohol Use: Yes Hx Substance Use: Yes (IVDU Heroin) - Immunization History Hx Tetanus Toxoid Vaccination: No Hx Influenza Vaccination: No Hx Pneumococcal Vaccination: No Review Of Systems Except As Marked, All Systems Reviewed And Found Negative. Constitutional: Negative for: Fever Cardiovascular: Negative for: Chest Pain Respiratory: Negative for: Shortness of Breath Gastrointestinal: Negative for: Vomiting, Abdominal Pain Musculoskeletal: Negative for: Neck Pain Neurological: Negative for: Weakness, Numbness, Seizures Psych: Positive for: Psychosis Physical Exam - Physical Exam Appears: Non-toxic, No Acute Distress, Other (Appears drowsy) Skin: Normal Color, Warm, Dry Head: Atraumatic, Normacephalic Eye(s): bilateral: PERRL (but small), EOMI Neck: Normal ROM, Supple Cardiovascular: Rhythm Regular Respiratory: Normal Breath Sounds, No Accessory Muscle Use Gastrointestinal/Abdominal: Soft, No Tenderness Extremity: Normal ROM, Other (track tillman on arms) Neurological/Psych: Oriented x3, Normal Motor, Normal Sensation ED Course And Treatment - Laboratory Results Result Diagrams: 05/30/17 22:33 05/30/17 22:33 Lab Interpretation: No Acute Changes O2 Sat by Pulse Oximetry: 97 Pulse Ox Interpretation: Normal Progress Note: Pt is medically stable for psychiatric admission. Disposition - Disposition Disposition Time: 01:00 Condition: STABLE Forms: [facility] (Mal[place]ian) - Clinical Impression Clinical Impression: Suicidal ideation, Heroin abuse Physician Patient Turnover Patient Signed Over To: Gabe Prieto Handoff Comments: pending admission to psych.
[2017-05-31 10:52] VITALS: O2SAT 98
--- NOTE | 2017-05-31 14:48 | PCM.BM ---
<Teresa Gallardo - Last Filed: 05/31/17 14:46> Treatment Plan Problems - Problems identified on initial assessmt Depression Date Initiated: 05/31/17 Time Initiated: 14:46 Assessment reference: NA Status: Active Substance Abuse Date Initiated: 05/31/17 Time Initiated: 14:46 Assessment reference: NA Status: Active Treatment assets and liabiliti Patient Assests: adapts well, cooperative, self-reliant, ADL independent, negotiates basic needs, cognitively intact Patient Liabilities: live alone (lives with girlfriend), financial problems, poor support system, substance abuse (10 bags of Heroin), medical problems (Hep C) - Milieu Protocol Maintain good personal hygiene: daily Encourage regular showers, daily Remind patient to perform daily oral care, every shift Remind patient to perform daily oral care, other Assist patient to perform ADL's (Self) Conduct patient checks and document Observation sheet: Q15 minutes (For Safety) Maintain personal safety: every shift Educate patient to report safety concerns to staff, every shift Monitor environment for contraband/sharps Medication safety: Monitor for expected outcome, potential side effects: every shift, Assess barriers to learning: every shift, Assess readiness for medication education: every shift <Marine Payne - Last Filed: 06/02/17 11:11> Family Contact Family involvement: Alpesh/SO not involved - Goals for Treatment Patient goals for treatment: "I want to go to rehab." Discharge/Continuing Care - Education Needs Education Needs: Patient Medication, Patient Coping Skills, Patient Placement options, Patient Community resources - Discharge Discharge Criteria: Tolerates medication w/o severe side effects, Reduction of target symptoms Discharge to:: Substance Abuse Rehab - Treatment Team Participation Discussed with Family/SO: No Was Patient/Family/SO present at Treatment Team Meeting: Yes
--- NOTE | 2017-05-31 15:14 | PCM.PSYCH ---
Initial Psychiatric Evaluation - Initial Psychiatric Evaluation Type of Admission: Voluntary Legal Status: Capacity Chief Complaint (in patient's own words): I heard voices telling me to kill myself and hurt others History of Present Illness and Precipitating Events: Patient is a 41 year old male who was admitted for suicidal ideation and hearing voices that told him to harm himself and others. He lives with his Girlfriend and has 2 daughters, 11 and 6 years old. He is employed as a [employer] at an [employer] for the last 6 months. He has a history of heroine use. Last used yesterday. Normally uses 10 bags daily IV. Smokes 1 marijuana "blunt" daily. Denies alcohol or tobacco products. Patient states he has a history of depression with no identifiable beginning. Patient began to cry during the interview. He states he feels worthless and hopeless. He states he hears voices that curse at him and tell him to kill others and himself. Patient states that he stops himself from listening and has not harmed others. He has attempted suicide 1 month ago by overdosing on heroine. He has been at [facility] on 04/24/17 for the depression and opiate use. Denies visual hallucinations or paranoia. Does not see a psychiatrist or support group outside the hospital. PMH: Depression Allergies: Shellfish/seafood-rash and throat closes up Past Psychiatric History - Past Psychiatric History Previous Treatment History: Inpatient At [facility] hospital: [facility] Date: 04/29/17 Pertinent Medical Hx (Current Medical&Sleep Prob, Allergies): Allergies Allergy/AdvReac Type Severity Reaction Status Date / Time shellfish derived Allergy Severe SWELLING Verified 05/30/17 21:29 seafood Allergy Severe SWELLING Uncoded 05/30/17 21:29 No Known Home Med 05/30/17 Review of Systems - Review of Systems All systems: reviewed and no additional remarkable complaints except - Psychiatric Psychiatric: Auditory Hallucinations, Depression, Difficulty Concentrating, Homicidal Ideation, Hopelessness, Suicidal Ideation Mental Status Examination - Personal Presentation Personal Presentation: Looks stated age - Affect Affect: Constricted, Depressed - Motor Activity Motor Activity: Calm - Reliability in Providing Information Reliability in Providing Information: Good - Speech Speech: Coherent - Mood Mood: Depressed - Formal Thought Process Formal Thought Process: No Impairment - Hallucinations/Delusions Hallucinations: Auditory - Obsessions/Compulsions Obsessions: No Compulsions: No - Cognitive Functions Orientation: Person, Place, Situation, Time Sensorium: Lethargic Attention/Concentration: Attentive Abstract Thinking: [place] Estimate of Intelligence: Below average DSM 5 DX - DSM 5 DSM 5 Diagnosis: Major depressive disorder recurrent severe with psychotic features Opioid use severe Opioid withdrawal - Recommended/Plan of Treatment Treatment Recommendations and Plan of Treatment: Major depressive disorder recurrent severe without psychotic features CBT Psychoeducation Supportive therapy, group therapy, individual therapy Mirtazapine 15 mg PO QHS Neurontin 300 mg by mouth 2 times a day Risperdal 1 mg po QHS Trazodone 50 mg by mouth daily at bedtime Opioid use disorder severe CBT Psychoeducation Supportive therapy, individual therapy Use [place] for abstinence Opioid withdrawal CBT Psychoeducation Supportive therapy, individual therapy Clonidine when necessary Methadone taper - Smoking Cessation Smoking Cessation Initiated: No
[2017-05-31] MEDS ORDERED: Aluminum Hydroxide/Magnesium Hydroxide Susp (30 mL) PO PRN (17:16)
--- NOTE | 2017-06-02 10:16 | PCM.PYCHPN ---
Psychiatric Progress Note - Psychiatric Progress Note Patient seen today, length of contact: 15 min Patient Chief Complaint: I heard voices telling me to kill myself and hurt others Medication Change: Yes (start risperdal ) Medical Record Reviewed: Yes Mental Status Examination - Cognitive Function Orientation: Person, Place, Situation, Time Memory: Intact Attention: WNL Concentration: Poor Association: Loose Fund of Knowledge: WNL - Mood Mood: Depressed, Anxious - Affect Affect: Constricted, Depressed - Speech Speech: Soft - Formal Thought Process Formal Thought Process: Hallucinations, Delusions, Paranoia - Suicidal Ideation Suicidal Ideation: No - Homicidal Ideation Homicidal Ideation: No Goal/Treatment Plan - Goal/Treatment Plan Need for Continued Stay: Severe depression anxiety, Severe functional impairment Progress Toward Problem(s) and Goals/Treatment Plan: Major depressive disorder recurrent severe without psychotic features CBT Psychoeducation Supportive therapy, group therapy, individual therapy Mirtazapine 15 mg PO QHS Neurontin 300 mg by mouth 2 times a day Risperdal 1 mg po QHS Trazodone 50 mg by mouth daily at bedtime Opioid use disorder severe CBT Psychoeducation Supportive therapy, individual therapy Use [place] for abstinence Opioid withdrawal CBT Psychoeducation Supportive therapy, individual therapy Clonidine when necessary Methadone taper - Smoking Cessation Smoking Cessation Initiated: No
--- NOTE | 2017-06-02 10:16 | PCM.PYCHPN ---
Psychiatric Progress Note - Psychiatric Progress Note Patient seen today, length of contact: 15 min Patient Chief Complaint: I heard voices telling me to kill myself and hurt others Medication Change: Yes Medical Record Reviewed: Yes Mental Status Examination - Cognitive Function Orientation: Person, Place, Situation, Time Memory: Intact Attention: WNL Concentration: Poor Association: WNL Fund of Knowledge: Poor - Mood Mood: Depressed - Affect Affect: Constricted, Depressed - Speech Speech: Soft - Formal Thought Process Formal Thought Process: Hallucinations, Delusions - Suicidal Ideation Suicidal Ideation: No - Homicidal Ideation Homicidal Ideation: No Goal/Treatment Plan - Goal/Treatment Plan Need for Continued Stay: Severe depression anxiety, Severe functional impairment Progress Toward Problem(s) and Goals/Treatment Plan: Major depressive disorder recurrent severe without psychotic features CBT Psychoeducation Supportive therapy, group therapy, individual therapy Mirtazapine 15 mg PO QHS Neurontin 300 mg by mouth 2 times a day Risperdal 1 mg po QHS Trazodone 50 mg by mouth daily at bedtime Opioid use disorder severe CBT Psychoeducation Supportive therapy, individual therapy Use [place] for abstinence Opioid withdrawal CBT Psychoeducation Supportive therapy, individual therapy Clonidine when necessary Methadone taper - Smoking Cessation Smoking Cessation Initiated: No
--- NOTE | 2017-06-03 16:31 | PCM.PYCHPN ---
Psychiatric Progress Note - Psychiatric Progress Note Patient seen today, length of contact: 15 min Patient Chief Complaint: I heard voices telling me to kill myself and hurt others Medication Change: Yes (increase risperdal ) Medical Record Reviewed: Yes Mental Status Examination - Cognitive Function Orientation: Person, Place, Situation, Time Memory: Intact Attention: WNL Concentration: Poor Association: Loose Fund of Knowledge: WNL - Mood Mood: Depressed, Anxious - Affect Affect: Constricted, Depressed - Speech Speech: Soft - Formal Thought Process Formal Thought Process: Hallucinations, Delusions, Paranoia - Suicidal Ideation Suicidal Ideation: No - Homicidal Ideation Homicidal Ideation: No Goal/Treatment Plan - Goal/Treatment Plan Need for Continued Stay: Severe depression anxiety, Severe functional impairment Progress Toward Problem(s) and Goals/Treatment Plan: Major depressive disorder recurrent severe without psychotic features CBT Psychoeducation Supportive therapy, group therapy, individual therapy Mirtazapine 30 mg PO QHS Neurontin 300 mg by mouth 2 times a day Risperdal 2 mg po QHS Trazodone 100 mg by mouth daily at bedtime Opioid use disorder severe CBT Psychoeducation Supportive therapy, individual therapy Use [place] for abstinence Opioid withdrawal CBT Psychoeducation Supportive therapy, individual therapy Clonidine when necessary Methadone taper
--- NOTE | 2017-06-05 11:48 | PCM.PYCHPN ---
Psychiatric Progress Note - Psychiatric Progress Note Patient seen today, length of contact: 15 min Patient Chief Complaint: I heard voices telling me to kill myself and hurt others Medication Change: Yes (increase risperdal ) Medical Record Reviewed: Yes Mental Status Examination - Cognitive Function Orientation: Person, Place, Situation, Time Memory: Intact Attention: WNL Concentration: Poor Association: Loose Fund of Knowledge: WNL - Mood Mood: Depressed, Anxious - Affect Affect: Constricted, Depressed - Speech Speech: Soft - Formal Thought Process Formal Thought Process: Hallucinations, Delusions, Paranoia - Suicidal Ideation Suicidal Ideation: No - Homicidal Ideation Homicidal Ideation: No Goal/Treatment Plan - Goal/Treatment Plan Need for Continued Stay: Severe depression anxiety, Severe functional impairment Progress Toward Problem(s) and Goals/Treatment Plan: Major depressive disorder recurrent severe without psychotic features CBT Psychoeducation Supportive therapy, group therapy, individual therapy Mirtazapine 30 mg PO QHS Neurontin 300 mg by mouth 2 times a day Risperdal 2 mg po QHS Trazodone 100 mg by mouth daily at bedtime Opioid use disorder severe CBT Psychoeducation Supportive therapy, individual therapy Use [place] for abstinence Opioid withdrawal CBT Psychoeducation Supportive therapy, individual therapy Clonidine when necessary Methadone taper
--- NOTE | 2017-06-05 11:48 | PCM.PYCHPN ---
Psychiatric Progress Note - Psychiatric Progress Note Patient seen today, length of contact: 15 min Patient Chief Complaint: I heard voices telling me to kill myself and hurt others Medication Change: Yes (increase risperdal ) Medical Record Reviewed: Yes Mental Status Examination - Cognitive Function Orientation: Person, Place, Situation, Time Memory: Intact Attention: WNL Concentration: Poor Association: Loose Fund of Knowledge: WNL - Mood Mood: Depressed, Anxious - Affect Affect: Constricted, Depressed - Speech Speech: Soft - Formal Thought Process Formal Thought Process: Hallucinations, Delusions, Paranoia - Suicidal Ideation Suicidal Ideation: No - Homicidal Ideation Homicidal Ideation: No Goal/Treatment Plan - Goal/Treatment Plan Need for Continued Stay: Severe depression anxiety, Severe functional impairment Progress Toward Problem(s) and Goals/Treatment Plan: Major depressive disorder recurrent severe without psychotic features CBT Psychoeducation Supportive therapy, group therapy, individual therapy Mirtazapine 30 mg PO QHS Neurontin 300 mg by mouth 2 times a day Risperdal 2 mg po QHS Trazodone 100 mg by mouth daily at bedtime Opioid use disorder severe CBT Psychoeducation Supportive therapy, individual therapy Use [place] for abstinence Opioid withdrawal CBT Psychoeducation Supportive therapy, individual therapy Clonidine when necessary Methadone taper
--- NOTE | 2017-06-06 13:39 | PCM.PYCHPN ---
Psychiatric Progress Note - Psychiatric Progress Note Patient seen today, length of contact: 15 min Patient Chief Complaint: I heard voices telling me to kill myself and hurt others Medication Change: Yes (increase risperdal ) Medical Record Reviewed: Yes Mental Status Examination - Cognitive Function Orientation: Person, Place, Situation, Time Memory: Intact Attention: WNL Concentration: Poor Association: Loose Fund of Knowledge: WNL - Mood Mood: Depressed, Anxious - Affect Affect: Constricted, Depressed - Speech Speech: Soft - Formal Thought Process Formal Thought Process: Hallucinations, Delusions, Paranoia - Suicidal Ideation Suicidal Ideation: No - Homicidal Ideation Homicidal Ideation: No Goal/Treatment Plan - Goal/Treatment Plan Need for Continued Stay: Severe depression anxiety, Severe functional impairment Progress Toward Problem(s) and Goals/Treatment Plan: Major depressive disorder recurrent severe without psychotic features CBT Psychoeducation Supportive therapy, group therapy, individual therapy Mirtazapine 30 mg PO QHS Neurontin 300 mg by mouth 2 times a day Risperdal 2 mg po QHS Trazodone 100 mg by mouth daily at bedtime Opioid use disorder severe CBT Psychoeducation Supportive therapy, individual therapy Use [place] for abstinence Opioid withdrawal CBT Psychoeducation Supportive therapy, individual therapy Clonidine when necessary Methadone taper
--- NOTE | 2017-06-07 10:40 | PCM.PYCHPN ---
Psychiatric Progress Note - Psychiatric Progress Note Patient seen today, length of contact: 15 min Patient Chief Complaint: I am feeling little better Problems Identified/Issues Discussed: Patient seen and evaluated, chart reviewed and discussed with the nurse. Patient reports some improvement in his mood and reports some improvement in the feelings of hopelessness. He also reports improvement in his sleep. As per the staff is still pacing back and forth in the hallways. He also reports some improvement in the voices. Patient is compliant with medications and denies any side effects. Symptoms are improving but need more time to stabilize. Support and psychoeducation given. Medication Change: Yes (Increase Remeron) Medical Record Reviewed: Yes Mental Status Examination - Cognitive Function Orientation: Person, Place, Situation, Time Memory: Intact Attention: WNL Concentration: Poor Association: Loose Fund of Knowledge: WNL - Mood Mood: Depressed, Anxious - Affect Affect: Constricted, Depressed - Speech Speech: Soft - Formal Thought Process Formal Thought Process: Hallucinations - Suicidal Ideation Suicidal Ideation: No - Homicidal Ideation Homicidal Ideation: No Goal/Treatment Plan - Goal/Treatment Plan Need for Continued Stay: Severe depression anxiety, Severe functional impairment Progress Toward Problem(s) and Goals/Treatment Plan: Major depressive disorder recurrent severe without psychotic features CBT Psychoeducation Supportive therapy, group therapy, individual therapy Increase Mirtazapine 45 mg PO QHS Neurontin 300 mg by mouth 2 times a day Risperdal 2 mg po QHS Trazodone 100 mg by mouth daily at bedtime Opioid use disorder severe CBT Psychoeducation Supportive therapy, individual therapy Use [place] for abstinence Opioid withdrawal CBT Psychoeducation Supportive therapy, individual therapy Clonidine when necessary Methadone taper - Smoking Cessation Smoking Cessation Initiated: No
--- NOTE | 2017-06-08 10:13 | PCM.PYCHPN ---
Psychiatric Progress Note - Psychiatric Progress Note Patient seen today, length of contact: 15 min Patient Chief Complaint: I am feeling much better Problems Identified/Issues Discussed: Patient seen and evaluated, chart reviewed and discussed with the nurse. Today patient appears a lot better and he reports that his depressive symptoms are much better than before. He was appreciating the help of the doctor and the staff. He reports improvement in his sleep and appetite and denies any suicidal ideation or homicidal ideation. He reports improvement in the auditory hallucinations. He is looking forward to go to the inpatient rehabilitation ' [facility] tomorrow. Patient is compliant with medications and denies any side effects. Symptoms are improving but need more time to stabilize. Support and psychoeducation given. Medication Change: No Medical Record Reviewed: Yes Mental Status Examination - Cognitive Function Orientation: Person, Place, Situation, Time Memory: Intact Attention: WNL Concentration: WNL Association: WNL Fund of Knowledge: WNL - Mood Mood: Anxious - Affect Affect: Constricted - Speech Speech: Soft - Formal Thought Process Formal Thought Process: No Impairment - Suicidal Ideation Suicidal Ideation: No - Homicidal Ideation Homicidal Ideation: No Goal/Treatment Plan - Goal/Treatment Plan Need for Continued Stay: Severe depression anxiety, Severe functional impairment Progress Toward Problem(s) and Goals/Treatment Plan: Major depressive disorder recurrent severe without psychotic features CBT Psychoeducation Supportive therapy, group therapy, individual therapy Mirtazapine 45 mg PO QHS Neurontin 300 mg by mouth 2 times a day Risperdal 2 mg po QHS Trazodone 100 mg by mouth daily at bedtime Opioid use disorder severe CBT Psychoeducation Supportive therapy, individual therapy Use [place] for abstinence Opioid withdrawal CBT Psychoeducation Supportive therapy, individual therapy Clonidine when necessary Methadone taper - Smoking Cessation Smoking Cessation Initiated: No
[2017-06-09 07:00] VITALS: BP 99/61; PULSE 63; RESP 20; TEMP 98.1
== END 2017-06-09 08:00 | disposition home or self-care (01) | DRG 744 ==
LOC: C.ER 21:23 → C.9E 05-31 10:27 → C.5E 05-31 12:01
PROVIDERS: ADMIT Psychiatry & Neurology Psychiatry; ATTEND Psychiatry & Neurology Psychiatry
PROC: HZ2ZZZZ Detoxification Services for Substance Abuse Treatment (ICD-10-PCS; principal; 2017-05-31)
PROC: HZ52ZZZ Individual Psychotherapy for Substance Abuse Treatment, Cognitive-Behavioral (ICD-10-PCS; 2017-05-31)
PROC: HZ42ZZZ Group Counseling for Substance Abuse Treatment, Cognitive-Behavioral (ICD-10-PCS; 2017-05-31)
PROC: HZ59ZZZ Individual Psychotherapy for Substance Abuse Treatment, Supportive (ICD-10-PCS; 2017-05-31)
PROC: HZ56ZZZ Individual Psychotherapy for Substance Abuse Treatment, Psychoeducation (ICD-10-PCS; 2017-05-31)
PROC: HZ46ZZZ Group Counseling for Substance Abuse Treatment, Psychoeducation (ICD-10-PCS; 2017-05-31)
DX: F11.23 Opioid dependence with withdrawal (principal); F33.2 Major depressive disorder, recurrent severe without psychotic features; R45.851 Suicidal ideations; R45.850 Homicidal ideations; F41.8 Other specified anxiety disorders

== ENCOUNTER 2017-07-01 21:37 | Inpatient (IN) | payer MEDICAID ==
[2017-07-01 21:37] VITALS: BMI 25.1
[2017-07-01 22:47] VITALS: O2SAT 97
[2017-07-02 00:37] LABS: BASO % 0.5 % (0.0-2.0); EOS # 0.1 K/uL (0.0-0.7); EOS % 1.4 % (0.0-4.0); HEMOGLOBIN 15.1 g/dL (12.0-18.0); LYMPH # 1.4 K/uL (1.0-4.3); LYMPH % 32.7 % (20.0-40.0); MEAN CELL VOLUME 93.4 fL (80.0-94.0); MEAN CORPUSCULAR HEMOGLOBIN 32.6 pg (27.0-31.0); MEAN CORPUSCULAR HGB CONC 34.9 g/dL (33.0-37.0); MEAN PLATELET VOLUME 8.5 fL (7.2-11.7); MONO # 0.6 K/uL (0.0-0.8); MONO % 15.3 % (0.0-10.0); NEUT # 2.1 K/uL (1.8-7.0); NEUT % 50.1 % (50.0-75.0); NRBC % 0.2 % (0.0-2.0); RBC 4.64 Mil/uL (4.40-5.90); RED CELL DISTRIBUTION WIDTH 13.5 % (11.5-14.5); WHITE BLOOD COUNT 4.2 K/uL (4.8-10.8)
[2017-07-02 00:46] LABS: SQUAMOUS EPITHIAL < 1 /hpf (0-5); URINE BILIRUBIN NEGATIVE (NEGATIVE); URINE BLOOD NEGATIVE (NEGATIVE); URINE CALCIUM OXALATE CRYSTALS OCC /hpf (<OCC); URINE CLARITY Hazy (Clear); URINE COLOR Amber (YELLOW); URINE GLUCOSE (UA) NORMAL (Normal); URINE LEUKOCYTE ESTERASE NEG Leu/uL (Negative); URINE NITRATE NEGATIVE (NEGATIVE); URINE PROTEIN 1+ mg/dL (NEGATIVE)
--- NOTE | 2017-07-02 01:05 | C.PDOC ---
History Of Present Illness Patient is a 41 y/o male who presents to the ER for psychiatric evaluation. States he is having thoughts of killing himself. No specific plan. Denies any homicidal ideation. No physical complaints at this time. Time Seen by Provider: 07/02/17 00:10 Chief Complaint (Nursing): Psychiatric Evaluation History Per: Patient History/Exam Limitations: no limitations Onset/Duration Of Symptoms: Days Current Symptoms Are (Timing): Still Present Suicide/Self Injury Attempted (Context): None Associated Symptoms: Suicidal Thoughts. denies: Suicidal Plan Past Medical History Reviewed: Historical Data, Nursing Documentation, Vital Signs Vital Signs: Last Vital Signs Temp 98.3 F 07/01/17 22:40 Pulse 85 07/01/17 22:40 Resp 20 07/01/17 22:40 BP 122/85 07/01/17 22:40 Pulse Ox 97 07/02/17 01:05 - Medical History PMH: Back Problems, Bipolar Disorder, Hepatitis (C) Denies: Diabetes, HIV (Tested negative), HTN, Chronic Kidney Disease, Seizures, Sexually Transmitted Disease - [facility] Procedures DETOXIFICATION SERVICES FOR SUBSTANCE ABUSE TREATMENT (05/31/17) GROUP SHIFT STACKER FOR SUBSTANCE ABUSE TREATMENT, PSYCHOEDUCATION (05/31/17) GROUP SHIFT STACKER FOR SUBSTANCE ABUSE, COGNITIVE BEHAVIORAL (05/31/17) INDIV PSYCHOTHERAPY FOR SUBSTANCE ABUSE TREATMENT, SUPPORT (05/31/17) INDIV PSYCHOTHERAPY FOR SUBSTANCE ABUSE, COGNITIV BEHAVIORAL (05/31/17) INDIV PSYCHOTHERAPY FOR SUBSTANCE ABUSE, PSYCHOEDUCATION (05/31/17) INJECT/INFUSE NEC (09/11/14) Family History: States: Unknown Family Hx - Social History Hx Tobacco Use: Yes Hx Alcohol Use: No Hx Substance Use: Yes - Immunization History Hx Tetanus Toxoid Vaccination: No Hx Influenza Vaccination: No Hx Pneumococcal Vaccination: No Review Of Systems Except As Marked, All Systems Reviewed And Found Negative. Psych: Positive for: Suicidal ideation (with no plan). Negative for: Other ( homicidal ideation) Physical Exam - Physical Exam Appears: Non-toxic, No Acute Distress Skin: Normal Color, Warm, Dry Head: Atraumatic, Normacephalic Eye(s): bilateral: Normal Inspection, PERRL, EOMI Oral Mucosa: Moist Neck: Normal ROM, Supple Chest: Symmetrical Cardiovascular: Rhythm Regular Respiratory: Normal Breath Sounds, No Accessory Muscle Use Gastrointestinal/Abdominal: Normal Exam, Soft, No Tenderness Back: Normal Inspection Extremity: Bilateral: Atraumatic, Normal Color And Temperature, Normal ROM Neurological/Psych: Oriented x3, Normal Speech Gait: Steady ED Course And Treatment - Laboratory Results Result Diagrams: 07/02/17 00:34 07/02/17 00:34 O2 Sat by Pulse Oximetry: 97 (RA) Pulse Ox Interpretation: Normal Medical Decision Making Medical Decision Making: Ordered labs including UDS and UA. Patient placed on 1:1 observation. Crisis will evaluate Disposition Discussed With DrRuddy: Michelle Hernandez Doctor Will See Patient In The: Hospital Counseled Patient/Family Regarding: Diagnosis - Disposition Disposition: HOSPITALIZED Disposition Time: 01:43 Condition: STABLE Forms: [facility] (Bermudian) - POA Present On Arrival: None - Clinical Impression Clinical Impression: Depressive disorder, Drug overdose - Scribe Statement The provider has reviewed the documentation as recorded by the Shaguftaibchloe Rodriguez Provider Attestation: All medical record entries made by the Shaguftaibchloe were at my direction and personally dictated by me. I have reviewed the chart and agree that the record accurately reflects my personal performance of the history, physical exam, medical decision making, and the department course for this patient. I have also personally directed, reviewed, and agree with the discharge instructions and disposition.
[2017-07-02 01:09] LABS: ALBUMIN 3.7 g/dL (3.5-5.0); BLOOD UREA NITROGEN 12 mg/dL (9-20); CALCIUM 8.2 mg/dl (8.6-10.4); GFR AFRICAN-AMERICAN > 60; GFR NON-AFRICAN AMERICAN > 60
[2017-07-02 01:10] LABS: ALB/GLOB RATIO 0.9 (1.0-2.1); ALT/SGPT 166 U/L (21-72); AST/SGOT 63 U/L (17-59)
[2017-07-02 01:21] LABS: BARBITURATES, UR NEGATIVE (NEGATIVE); BENZODIAZEPINES, UR NEGATIVE (NEGATIVE); PHENCYCLIDINE, UR NEGATIVE (NEGATIVE)
[2017-07-02 01:25] LABS: OPIATES, UR POSITIVE (NEGATIVE)
--- NOTE | 2017-07-02 02:41 | PCM.BM ---
<Fito Garcia - Last Filed: 07/02/17 02:39> Treatment Plan Problems - Problems identified on initial assessmt DEPRESSION Date Initiated: 07/02/17 Time Initiated: 02:15 Assessment reference: NA Status: Active SUICIDAL IDEATION Date Initiated: 07/02/17 Time Initiated: 02:15 Assessment reference: NA Status: Active SUBSTANCE ABUSE Date Initiated: 07/02/17 Time Initiated: 02:15 Assessment reference: NA Status: Active Treatment assets and liabiliti Patient Assests: adapts well, cooperative, self-reliant, ADL independent, negotiates basic needs, cognitively intact Patient Liabilities: live alone, financial problems, poor support system, relationship conflicts, substance abuse, medical problems, legal issue - Milieu Protocol Maintain good personal hygiene: daily Encourage regular showers, daily Remind patient to perform daily oral care, daily Assist patient to perform ADL's Maintain personal safety: every shift Educate patient to report safety concerns to staff, every shift Monitor environment for contraband/sharps Medication safety: Monitor for expected outcome, potential side effects: every shift, Assess barriers to learning: every shift, Assess readiness for medication education: every shift <Marine Payne - Last Filed: 07/02/17 11:23> Family Contact Family involvement: Famliy/SO not involved - Goals for Treatment Patient goals for treatment: "I [facility] to go to [facility] Discharge/Continuing Care - Education Needs Education Needs: Patient Medication, Patient Coping Skills, Patient Placement options, Patient Community resources - Discharge Discharge Criteria: Tolerates medication w/o severe side effects, No longer exhibiting s/s of withdrawal Discharge to:: Substance Abuse Rehab - Treatment Team Participation Discussed with Family/SO: No Was Patient/Family/SO present at Treatment Team Meeting: Yes
[2017-07-02] MEDS ORDERED: Aluminum Hydroxide/Magnesium Hydroxide Susp (30 mL) PO PRN (11:20)
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
--- NOTE | 2017-07-03 13:19 | PCM.PYCHPN ---
Psychiatric Progress Note - Psychiatric Progress Note Patient seen today, length of contact: 16 min Patient Chief Complaint: "Anxious" Problems Identified/Issues Discussed: The pt is seen, chart reviewed, case discussed with staff. The pt is compliant with medications and reports no side-effects. Symptoms are improving but needs more time to stabilize. After care discussed, support and psychoeducation given. Medication Change: Yes Medical Record Reviewed: Yes Mental Status Examination - Cognitive Function Orientation: Person, Place, Situation, Time Memory: Intact Attention: WNL Concentration: WNL Association: WNL Fund of Knowledge: WNL - Mood Mood: Depressed, Anxious - Affect Affect: Constricted, Depressed - Formal Thought Process Formal Thought Process: Hallucinations - Suicidal Ideation Suicidal Ideation: No - Homicidal Ideation Homicidal Ideation: No Goal/Treatment Plan - Goal/Treatment Plan Need for Continued Stay: Discharge may exacerbated symptoms, Severe functional impairment Progress Toward Problem(s) and Goals/Treatment Plan: Continue medications Support and psychoeducation daily Attend groups and activities daily After care planning by NEIDA
--- NOTE | 2017-07-04 13:26 | PCM.PYCHPN ---
Psychiatric Progress Note - Psychiatric Progress Note Patient seen today, length of contact: 16 min Patient Chief Complaint: "Not so well" Problems Identified/Issues Discussed: The pt is seen, chart reviewed, case discussed with staff. Support given, CBT and ME used briefly No new symptoms reported, improving slowly and needs more time No SEs from medications, risks discussed. After care discussed Medication Change: Yes (meds adjusted) Medical Record Reviewed: Yes Mental Status Examination - Cognitive Function Orientation: Person, Place, Situation, Time Memory: Intact Attention: WNL Concentration: WNL Association: WNL Fund of Knowledge: WNL - Mood Mood: Depressed, Anxious - Affect Affect: Constricted, Depressed - Formal Thought Process Formal Thought Process: Hallucinations - Suicidal Ideation Suicidal Ideation: No - Homicidal Ideation Homicidal Ideation: No Goal/Treatment Plan - Goal/Treatment Plan Need for Continued Stay: Discharge may exacerbated symptoms, Severe functional impairment Progress Toward Problem(s) and Goals/Treatment Plan: Continue medications Support and psychoeducation daily Attend groups and activities daily After care planning by NEIDA
--- NOTE | 2017-07-05 12:53 | PCM.PYCHPN ---
Psychiatric Progress Note - Psychiatric Progress Note Patient seen today, length of contact: 16 min Patient Chief Complaint: "I tried to commit suicide yesterday. I'm tired of life, I'm a drug addict." Medication Change: Yes (meds adjusted) Medical Record Reviewed: Yes Mental Status Examination - Cognitive Function Orientation: Person, Place, Situation, Time Memory: Intact Attention: WNL Concentration: WNL Association: WNL Fund of Knowledge: WNL - Mood Mood: Depressed, Anxious - Affect Affect: Constricted, Depressed - Formal Thought Process Formal Thought Process: Hallucinations - Suicidal Ideation Suicidal Ideation: No - Homicidal Ideation Homicidal Ideation: No Goal/Treatment Plan - Goal/Treatment Plan Need for Continued Stay: Discharge may exacerbated symptoms, Severe functional impairment Progress Toward Problem(s) and Goals/Treatment Plan: Major depressive disorder recurrent, severe with psychotic features CBT Psychoeducation Supportive therapy, group therapy, individual therapy Neurontin 300 mg by mouth 2 times a day Trazodone 50 mg by mouth daily at bedtime Remeron 45 mg PO HS Atarax 25 mg Q6 PRN anxiety Benztropine 1 mg PO HS Risperidone 2 mg PO HS Opioid use disorder severe Opioid withdrawal CBT Psychoeducation Supportive therapy, individual therapy Use CO for abstinence Clonidine when necessary Methadone taper SW to assist with long term care social worker arrangements - pt stated desire to go to [facility]
[2017-07-06 06:31] VITALS: RESP 20; TEMP 97.1
--- NOTE | 2017-07-06 14:29 | PCM.PYCHPN ---
Psychiatric Progress Note - Psychiatric Progress Note Patient seen today, length of contact: 16 min Patient Chief Complaint: "I tried to commit suicide yesterday. I'm tired of life, I'm a drug addict." Medication Change: Yes (meds adjusted) Medical Record Reviewed: Yes Mental Status Examination - Cognitive Function Orientation: Person, Place, Situation, Time Memory: Intact Attention: WNL Concentration: WNL Association: WNL Fund of Knowledge: WNL - Mood Mood: Depressed, Anxious - Affect Affect: Constricted, Depressed - Formal Thought Process Formal Thought Process: Hallucinations - Suicidal Ideation Suicidal Ideation: No - Homicidal Ideation Homicidal Ideation: No Goal/Treatment Plan - Goal/Treatment Plan Need for Continued Stay: Discharge may exacerbated symptoms, Severe functional impairment Progress Toward Problem(s) and Goals/Treatment Plan: Major depressive disorder recurrent, severe with psychotic features CBT Psychoeducation Supportive therapy, group therapy, individual therapy Neurontin 300 mg by mouth 2 times a day Trazodone 50 mg by mouth daily at bedtime Remeron 45 mg PO HS Atarax 25 mg Q6 PRN anxiety Benztropine 1 mg PO HS Risperidone 2 mg PO HS Opioid use disorder severe Opioid withdrawal CBT Psychoeducation Supportive therapy, individual therapy Use HI for abstinence Clonidine when necessary Methadone taper SW to assist with anti air warfare operations officer arrangements - pt stated desire to go to [facility]
[2017-07-07 08:46] VITALS: BP 112/81; PULSE 88
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
== END 2017-07-07 10:40 | disposition home or self-care (01) | DRG 430 ==
LOC: C.ER 21:37 → C.5E 07-02 01:45
PROVIDERS: ADMIT Psychiatry & Neurology Psychiatry; ATTEND Psychiatry & Neurology Psychiatry
PROC: GZHZZZZ Group Psychotherapy (ICD-10-PCS; principal; 2017-07-02)
PROC: GZ58ZZZ Individual Psychotherapy, Cognitive-Behavioral (ICD-10-PCS; 2017-07-02)
PROC: GZ56ZZZ Individual Psychotherapy, Supportive (ICD-10-PCS; 2017-07-02)
PROC: HZ2ZZZZ Detoxification Services for Substance Abuse Treatment (ICD-10-PCS; 2017-07-02)
PROC: HZ52ZZZ Individual Psychotherapy for Substance Abuse Treatment, Cognitive-Behavioral (ICD-10-PCS; 2017-07-02)
PROC: HZ59ZZZ Individual Psychotherapy for Substance Abuse Treatment, Supportive (ICD-10-PCS; 2017-07-02)
PROC: HZ56ZZZ Individual Psychotherapy for Substance Abuse Treatment, Psychoeducation (ICD-10-PCS; 2017-07-02)
PROC: HZ42ZZZ Group Counseling for Substance Abuse Treatment, Cognitive-Behavioral (ICD-10-PCS; 2017-07-02)
PROC: HZ46ZZZ Group Counseling for Substance Abuse Treatment, Psychoeducation (ICD-10-PCS; 2017-07-02)
DX: F33.3 Major depressive disorder, recurrent, severe with psychotic symptoms (principal); R45.851 Suicidal ideations; F11.23 Opioid dependence with withdrawal

== ENCOUNTER 2017-12-27 20:08 | Emergency (ER) | payer MEDICAID ==
[2017-12-27 20:09] VITALS: BMI 25.1
[2017-12-27 20:18] VITALS: O2SAT 97
--- NOTE | 2017-12-27 20:31 | C.PDOC ---
History Of Present Illness 42 y/o male presents to the ED with complaints of suprapubic pain and dysuria since yesterday. Also states he has only been able to void a few drops at a time. Otherwise denies any fever, chills, nausea, or vomiting. States that he had some check-up in the past and was told he had an enlarged prostate at that time. Time Seen by Provider: 12/27/17 20:31 Chief Complaint (Nursing): Male Genitourinary History Per: Patient History/Exam Limitations: no limitations Onset/Duration Of Symptoms: Days (x1) Current Symptoms Are (Timing): Still Present Severity: Mild Pain Scale Rating Of: 4 Quality Of Discomfort: "Pain" Associated Symptoms: Urinary Symptoms Alleviating Factors: None Past Medical History Reviewed: Historical Data, Nursing Documentation, Vital Signs Vital Signs: Last Vital Signs Temp 97.9 F 12/27/17 20:15 Pulse 94 H 12/27/17 20:15 Resp 16 12/27/17 20:15 BP 128/80 12/27/17 20:15 Pulse Ox 97 12/27/17 21:33 - Medical History PMH: Back Problems, Bipolar Disorder, Depression, Hepatitis (C) Denies: Diabetes, HIV (Tested negative), HTN, Chronic Kidney Disease, Seizures, Sexually Transmitted Disease Surgical History: No Surg Hx - [facility] Procedures DETOXIFICATION SERVICES FOR SUBSTANCE ABUSE TREATMENT (07/02/17) GROUP MECHANICAL OPERATOR FOR SUBSTANCE ABUSE TREATMENT, PSYCHOEDUCATION (07/02/17) GROUP MECHANICAL OPERATOR FOR SUBSTANCE ABUSE, COGNITIVE BEHAVIORAL (07/02/17) GROUP PSYCHOTHERAPY (07/02/17) INDIV PSYCHOTHERAPY FOR SUBSTANCE ABUSE TREATMENT, SUPPORT (07/02/17) INDIV PSYCHOTHERAPY FOR SUBSTANCE ABUSE, COGNITIV BEHAVIORAL (07/02/17) INDIV PSYCHOTHERAPY FOR SUBSTANCE ABUSE, PSYCHOEDUCATION (07/02/17) INDIVIDUAL PSYCHOTHERAPY, COGNITIVE-BEHAVIORAL (07/02/17) INDIVIDUAL PSYCHOTHERAPY, SUPPORTIVE (07/02/17) INJECT/INFUSE NEC (09/11/14) Family History: States: Unknown Family Hx - Social History Hx Tobacco Use: Yes Hx Alcohol Use: Yes Hx Substance Use: No - Immunization History Hx Tetanus Toxoid Vaccination: No Hx Influenza Vaccination: No Hx Pneumococcal Vaccination: No Review Of Systems Constitutional: Negative for: Fever, Chills Gastrointestinal: Positive for: Abdominal Pain. Negative for: Nausea, Vomiting Genitourinary: Positive for: Dysuria, Other (unable to void). Negative for: Frequency, Incontinence, Hematuria, Penile Discharge Physical Exam - Physical Exam Appears: In Acute Distress (appears in 4/10 discomfort) Skin: Warm, Dry Head: Normacephalic Eye(s): bilateral: Normal Inspection Oral Mucosa: Moist Neck: Trachea Midline, Supple Chest: Symmetrical Cardiovascular: Rhythm Regular Respiratory: No Rales, No Rhonchi, No Wheezing Gastrointestinal/Abdominal: Soft, Tenderness (mild suprapubic tenderness), No Distention, No Guarding, No Rebound Male Genital: No Inguinal Tenderness Extremity: Bilateral: Atraumatic, Normal Color And Temperature, Normal ROM Neurological/Psych: Oriented x3 Gait: Steady ED Course And Treatment - Laboratory Results Result Diagrams: 12/27/17 21:34 12/27/17 21:34 O2 Sat by Pulse Oximetry: 97 (RA) Pulse Ox Interpretation: Normal Progress Note: Blood work and urine sent for analysis. Administered IV fluids. Performed bladder scan which shows only 60-70cc max of urine in the bladder. Patient refuses bell catheter placement. Disposition Counseled Patient/Family Regarding: Studies Performed, Diagnosis, Need For Followup - Disposition Disposition: HOME/ ROUTINE Disposition Time: 20:31 Condition: FAIR Additional Instructions: Please return if symptoms recur Prescriptions: Ciprofloxacin [Cipro] 1 tab PO BID #14 tab Instructions: Dysuria, Adult (DC) Forms: [facility] (Panamanian) - Clinical Impression Clinical Impression: Dysuria - Scribe Statement The provider has reviewed the documentation as recorded by the Scribe (Nina Rodriguez) Provider Attestation: All medical record entries made by the Scribe were at my direction and personally dictated by me. I have reviewed the chart and agree that the record accurately reflects my personal performance of the history, physical exam, medical decision making, and the department course for this patient. I have also personally directed, reviewed, and agree with the discharge instructions and disposition.
[2017-12-27] MEDS ORDERED: Sodium Chloride 0.9% 1,000 ML IV ONE (20:57)
[2017-12-27] MEDS ORDERED: Sodium Chloride 0.9% 1,000 ML ONE (21:23)
[2017-12-27 21:38] LABS: BASO % 0.2 % (0.0-2.0); EOS # 0.2 K/uL (0.0-0.7); EOS % 1.4 % (0.0-4.0); HEMOGLOBIN 16.7 g/dL (12.0-18.0); LYMPH # 2.4 K/uL (1.0-4.3); LYMPH % 20.8 % (20.0-40.0); MEAN CELL VOLUME 92.7 fL (80.0-94.0); MEAN CORPUSCULAR HEMOGLOBIN 31.9 pg (27.0-31.0); MEAN CORPUSCULAR HGB CONC 34.4 g/dL (33.0-37.0); MEAN PLATELET VOLUME 8.2 fL (7.2-11.7); MONO % 8.7 % (0.0-10.0); NEUT # 7.8 K/uL (1.8-7.0); NEUT % 68.9 % (50.0-75.0); RBC 5.22 Mil/uL (4.40-5.90); RED CELL DISTRIBUTION WIDTH 13.2 % (11.5-14.5)
[2017-12-27 21:56] LABS: ALB/GLOB RATIO 1.3 (1.0-2.1); ALBUMIN 4.3 g/dL (3.5-5.0); ALT/SGPT 21 U/L (21-72); AST/SGOT 27 U/L (17-59); BLOOD UREA NITROGEN 15 mg/dL (9-20); GFR AFRICAN-AMERICAN > 60; GFR NON-AFRICAN AMERICAN > 60
[2017-12-27 21:58] LABS: URINE AMORPHOUS SEDIMENT RARE /ul (<OCC); URINE BILIRUBIN NEGATIVE (NEGATIVE); URINE BLOOD NEGATIVE (NEGATIVE); URINE CLARITY Hazy (Clear); URINE COLOR Yellow (YELLOW); URINE GLUCOSE (UA) NORMAL (Normal); URINE LEUKOCYTE ESTERASE NEG Leu/uL (Negative); URINE PROTEIN NEGATIVE (NEGATIVE); URINE UROBILINOGEN NORMAL mg/dL (0.2-1.0)
[2017-12-27 22:05] LABS: WHITE BLOOD COUNT 11.4 K/uL (4.8-10.8)
[2017-12-27 22:43] VITALS: BP 124/84; PULSE 80; RESP 18; TEMP 98.4
== END 2017-12-27 22:56 | disposition home or self-care (01) ==
LOC: C.ER 20:08
DX: R30.0 Dysuria (principal)
CPT/HCPCS: 80053; 81001; 85025; 96360; 99284; J7030

== ENCOUNTER 2018-03-20 20:00 | Inpatient (IN) | payer MEDICAID, OTHER ==
[2018-03-20 20:00] VITALS: BMI 25.1
[2018-03-20 21:03] LABS: BASO % 0.3 % (0.0-2.0); EOS # 0.1 K/uL (0.0-0.7); EOS % 1.9 % (0.0-4.0); LYMPH # 1.9 K/uL (1.0-4.3); LYMPH % 25.3 % (20.0-40.0); MEAN CELL VOLUME 90.4 fL (80.0-94.0); MEAN CORPUSCULAR HGB CONC 34.3 g/dL (33.0-37.0); MEAN PLATELET VOLUME 8.1 fL (7.2-11.7); MONO # 0.9 K/uL (0.0-0.8); MONO % 11.4 % (0.0-10.0); NEUT # 4.6 K/uL (1.8-7.0); NEUT % 61.1 % (50.0-75.0); RBC 4.84 Mil/uL (4.40-5.90); WHITE BLOOD COUNT 7.6 K/uL (4.8-10.8)
[2018-03-20 21:08] LABS: URINE BILIRUBIN NEGATIVE (NEGATIVE); URINE BLOOD NEGATIVE (NEGATIVE); URINE CLARITY Clear (Clear); URINE COLOR Yellow (YELLOW); URINE GLUCOSE (UA) NORMAL (Normal); URINE LEUKOCYTE ESTERASE NEG Leu/uL (Negative); URINE PROTEIN NEGATIVE (NEGATIVE); URINE UROBILINOGEN NORMAL mg/dL (0.2-1.0)
[2018-03-20 21:16] LABS: ALB/GLOB RATIO 1.3 (1.0-2.1); ALBUMIN 4.4 g/dL (3.5-5.0); ALT/SGPT 15 U/L (21-72); AST/SGOT 17 U/L (17-59); BLOOD UREA NITROGEN 12 mg/dL (9-20); GFR NON-AFRICAN AMERICAN > 60
--- NOTE | 2018-03-20 21:19 | C.PDOC ---
History Of Present Illness Patient presents to ED c/o feeling depressed, states he is having SI with voices telling him to hurt himself. He has no specific suicidal plan, and denies any physical complaints at this time. Time Seen by Provider: 03/20/18 20:36 Chief Complaint (Nursing): Psychiatric Evaluation History Per: Patient History/Exam Limitations: no limitations Onset/Duration Of Symptoms: Persistent Suicide/Self Injury Attempted (Context): None Involuntary Hold By: Emergency Physician Past Medical History Reviewed: Historical Data, Nursing Documentation, Vital Signs Vital Signs: Last Vital Signs Temp 97.7 F 03/20/18 20:09 Pulse 76 03/20/18 20:09 Resp 14 03/20/18 20:09 BP 117/79 03/20/18 20:09 Pulse Ox 97 03/20/18 20:09 - Medical History PMH: Back Problems, Bipolar Disorder, Depression, Hepatitis (C) - [facility] Procedures DETOXIFICATION SERVICES FOR SUBSTANCE ABUSE TREATMENT (07/02/17) GROUP CIGARETTE STAMPER FOR SUBSTANCE ABUSE TREATMENT, PSYCHOEDUCATION (07/02/17) GROUP CIGARETTE STAMPER FOR SUBSTANCE ABUSE, COGNITIVE BEHAVIORAL (07/02/17) GROUP PSYCHOTHERAPY (07/02/17) INDIV PSYCHOTHERAPY FOR SUBSTANCE ABUSE TREATMENT, SUPPORT (07/02/17) INDIV PSYCHOTHERAPY FOR SUBSTANCE ABUSE, COGNITIV BEHAVIORAL (07/02/17) INDIV PSYCHOTHERAPY FOR SUBSTANCE ABUSE, PSYCHOEDUCATION (07/02/17) INDIVIDUAL PSYCHOTHERAPY, COGNITIVE-BEHAVIORAL (07/02/17) INDIVIDUAL PSYCHOTHERAPY, SUPPORTIVE (07/02/17) INJECT/INFUSE NEC (09/11/14) Family History: States: No Known Family Hx - Social History Hx Tobacco Use: Yes Hx Alcohol Use: Yes Hx Substance Use: No - Immunization History Hx Tetanus Toxoid Vaccination: No Hx Influenza Vaccination: No Hx Pneumococcal Vaccination: No Review Of Systems Constitutional: Negative for: Fever, Chills Cardiovascular: Negative for: Chest Pain, Palpitations Respiratory: Negative for: Shortness of Breath Gastrointestinal: Negative for: Nausea, Vomiting, Abdominal Pain Skin: Negative for: Rash Neurological: Negative for: Weakness, Numbness, Headache, Dizziness Psych: Positive for: Depression, Suicidal ideation. Negative for: Anxiety, Psychosis Physical Exam - Physical Exam Appears: Well, Non-toxic, No Acute Distress, Other (flat affect) Skin: Normal Color, Warm, Dry Head: Atraumatic, Normacephalic Eye(s): bilateral: Normal Inspection Oral Mucosa: Moist Cardiovascular: Rhythm Regular Respiratory: Normal Breath Sounds, No Rales, No Rhonchi, No Wheezing Gastrointestinal/Abdominal: Normal Exam, Bowel Sounds, Soft, No Tenderness Extremity: Bilateral: Atraumatic, Normal Color And Temperature, Normal ROM Neurological/Psych: Oriented x3 ED Course And Treatment - Laboratory Results Result Diagrams: 03/20/18 20:56 03/20/18 20:56 O2 Sat by Pulse Oximetry: 97 (RA) Pulse Ox Interpretation: Normal Progress Note: Blood work, UA, UDS ordered and reviewed. 10:15pm- Patient medically cleared. Accepted by Dr. Jenkins for psychiatric admission. Disposition - Disposition Disposition: HOSPITALIZED Disposition Time: 22:15 Condition: STABLE - Clinical Impression Clinical Impression: Major depression Decision To Admit - Pt Status Changed To: Hospital Disposition Of: Inpatient - Admit Certification Admit to Inpatient:: After my assessment, the patient will require hospitalization for at least two midnights. This is because of the severity of symptoms shown, intensity of services needed, and/or the medical risk in this patient being treated as an outpatient. - InPatient: Physician Admission Certification: I certify that this patient requires 2 or more midnights of care for the following reason:: see notes - . Bed Request Type: Psychiatry Admitting Physician: Graham Jenkins Patient Diagnosis: Major depression
[2018-03-20 21:21] LABS: BARBITURATES, UR NEGATIVE (NEGATIVE); BENZODIAZEPINES, UR NEGATIVE (NEGATIVE)
[2018-03-20 21:24] LABS: OPIATES, UR POSITIVE (NEGATIVE)
[2018-03-20 21:25] LABS: PHENCYCLIDINE, UR NEGATIVE (NEGATIVE)
[2018-03-20] MEDS ORDERED: Aluminum Hydroxide/Magnesium Hydroxide Susp (30 mL) PO PRN (23:25)
--- NOTE | 2018-03-21 00:19 | PCM.BM ---
<Fito Garcia - Last Filed: 03/21/18 00:17> Treatment Plan Problems - Problems identified on initial assessmt DEPRESSION Date Initiated: 03/20/18 Time Initiated: 23:35 Assessment reference: NA Status: Active SUBSTANCE ABUSE Date Initiated: 03/21/18 Time Initiated: 23:35 Assessment reference: NA Status: Active Treatment assets and liabiliti Patient Assests: adapts well, cooperative, self-reliant, ADL independent, physically healthy, negotiates basic needs, cognitively intact Patient Liabilities: financial problems, poor support system, substance abuse, legal issue - Milieu Protocol Maintain good personal hygiene: daily Encourage regular showers, daily Remind patient to perform daily oral care, daily Assist patient to perform ADL's Maintain personal safety: every shift Educate patient to report safety concerns to staff, every shift Monitor environment for contraband/sharps Medication safety: Monitor for expected outcome, potential side effects: every shift, Assess barriers to learning: every shift, Assess readiness for medication education: every shift <Michelle Hernandez - Last Filed: 03/21/18 11:21> - Diagnosis (1) Depressive disorder Status: Acute Interventions: 03/21/18 11:21 * Assess/adjust medications daily and /or as needed * See patient on an individual basis 7x/week to assess symptoms of depression * Monitor for side effects & effectiveness of medications * (2) Drug abuse Status: Acute Interventions: 03/21/18 11:23 * Assess 7x/week regarding severity of withdrawal * Educate regarding risks, benefits, side effects and alternatives of medications * Use Motivational Interviewing for abstinence * Use CBT for relapse prevention * Medication management for withdrawal symptoms * Encourage medication assisted treatment * <Michela Herbert - Last Filed: 03/21/18 15:42> Family Contact Family involvement: Patient does not wish Family/SO involvement Family contact: Patient declines to allow family contact at present - Goals for Treatment Patient goals for treatment: "I want to go to [facility]" Discharge/Continuing Care - Education Needs Education Needs: Patient Medication, Patient Diagnosis/Disease Process, Patient Coping Skills - Discharge Discharge Criteria: Free of Suicidal thoughts, Normal sleep pattern, Ability to care for self, No longer exhibiting s/s of withdrawal, Reduction of target symptoms Discharge to:: Substance Abuse Rehab - Treatment Team Participation Discussed with Family/SO: No Was Patient/Family/SO present at Treatment Team Meeting: Yes
--- NOTE | 2018-03-21 09:51 | PCM.PSYCH ---
Initial Psychiatric Evaluation - Initial Psychiatric Evaluation Type of Admission: Voluntary Legal Status: Capacity Chief Complaint (in patient's own words): I was feeling depressed and suicidal.' History of Present Illness and Precipitating Events: Pt is a 42 yr old male with past psychiatric history of opiate abuse disorder, and depression who states that he came to the ER because he had thoughts of suicidal ideation and homicidal thoughts. He states that he's tired of life and today his feelings are unchanged from when he arrived in the ER. He has been admitted to psychiatric hospital three times previously at [facility] for similar reasons. He reports that he stopped taking meds and relapsed on heroin. He admits to hearing voices telling him that he is worthless and says they tell him to kill himself. Patient reports depressed mood, feelings of hopelessness and helplessness, poor sleep and poor appetite. He denies any manic symptoms. He reports auditory and paranoia but denies any visual hallucinations. Patient reports withdrawal symptoms including abdominal cramps, anxiety, headaches and sweating. Social hx: Lives with girlfriend. Patient states he is eating ok. He does not consume alcohol but admits to 10 bags of heroin by IV/day and last used yesterday. Patient is not currently working. Past Medical: Denies Allergies: denies Surgery: Tonsillectomy Hospitalizations: 3x Psychiatric hospitalizations at [facility] Family hx: Denies Medications: Remeron 30mg Current Medications: Active Medications Generic Name Dose Route Start Last Admin Trade Name Freq PRN Reason Stop Dose Admin Al Hydrox/Mg Hydrox/Simethicone 30 ml 03/20/18 23:25 Maalox 30 Ml PO TID PRN Indigestion / Heartburn Clonidine HCl 0.1 mg 03/20/18 23:25 Catapres PO Q8 PRN COWS Score More or Equal to 5 Hydroxyzine HCl 25 mg 03/20/18 23:26 03/20/18 23:52 Atarax PO 25 mg Q4H PRN Administration Anxiety Ibuprofen 600 mg 03/20/18 23:26 Motrin Tab PO Q6H PRN Pain, moderate (4-7) Influenza Virus Vaccine 60 mcg 03/23/18 10:00 Fluzone Quad [id number] IM 03/23/18 10:01 .ONCE ONE Loperamide HCl 2 mg 03/20/18 23:25 Imodium PO Q8 PRN Diarrhea Mirtazapine 15 mg 03/20/18 23:30 03/20/18 23:52 Remeron PO 15 mg HS DERRICK Administration Ondansetron HCl 4 mg 03/20/18 23:25 Zofran Tab PO Q8 PRN Nausea/Vomiting Trazodone HCl 50 mg 03/20/18 23:26 Desyrel PO HS PRN Insomnia Past Psychiatric History - Past Psychiatric History Previous Treatment History: Inpatient Pertinent Medical Hx (Current Medical&Sleep Prob, Allergies): Allergies Allergy/AdvReac Type Severity Reaction Status Date / Time shellfish derived Allergy Severe SWELLING Verified 03/20/18 20:13 seafood Allergy Severe SWELLING Uncoded 03/20/18 20:13 Review of Systems - Review of Systems All systems: reviewed and no additional remarkable complaints except - Psychiatric Psychiatric: Anxiety, Irritability, Suicidal Ideation Mental Status Examination - Personal Presentation Personal Presentation: Looks stated age - Affect Affect: Constricted, Depressed - Motor Activity Motor Activity: Calm - Reliability in Providing Information Reliability in Providing Information: Fair - Speech Speech: Organized - Mood Mood: Depressed, Anxious - Formal Thought Process Formal Thought Process: No Impairment - Obsessions/Compulsions Obsessions: No Compulsions: No - Cognitive Functions Orientation: Person, Place, Situation, Time Sensorium: Alert Attention/Concentration: Attentive Abstract Thinking: [place] Estimate of Intelligence: Below average Judgement: Imparied, as evidence by: Poor judgement, Imparied, as evidence by: Lack of insight into illness - Risk Risk: Suicidal, Withdrawal, Diminished functioning - Limitations Limitations: Living alone DSM 5 DX - DSM 5 DSM 5 Diagnosis: Major depressive disorder recurrent severe with psychotic features Opioid withdrawal Opioid use disorder severe - Recommended/Plan of Treatment Treatment Recommendations and Plan of Treatment: Major depressive disorder recurrent severe with psychotic features Opioid withdrawal Opioid use disorder severe -CBT -Psychotherapy -Supportive therapy, group therapy, individual therapy -Taper with methadone -Atarax 25 mg PO Q6 prn -Trazodone 50 mg PO QHS prn -Gabapentin for augmentation if needed -Remeron 15 mg po qHS -As needed medications -All risks, benefits and alternatives of the meds discussed, and the pt agreed and understood. -TN for abstinence -Encourage MAT -Refer to rehab or IOP, and self-help groups -Smoking cessation with TN -Nicotine patch if needed
[2018-03-22 06:19] VITALS: BP 91/58; PULSE 58; RESP 16; TEMP 97
--- NOTE | 2018-03-22 10:44 | PCM.PYCHDC ---
Mental Status Examination - Mental Status Examination Orientation: Person, Place, Situation, Time Memory: Intact Mood: Neutral Affect: Constricted Speech: Soft Attention: WNL Concentration: WNL Association: WNL Fund of Knowledge: WNL Formal Thought Process: No Impairment Description of patient's judgement and insight: good, fair Psychotic Thoughts and Behaviors: denies any AVH Suicidal Ideation: No Current Homicidal Ideation?: No Discharge Summary - Discharge Note Reason for Hospitalization: Pt is a 42 yr old male with past psychiatric history of opiate abuse disorder, and depression who states that he came to the ER because he had thoughts of suicidal ideation and homicidal thoughts. He states that he's tired of life and today his feelings are unchanged from when he arrived in the ER. He has been admitted to psychiatric hospital three times previously at [facility] for similar reasons. He reports that he stopped taking meds and relapsed on heroin. He admits to hearing voices telling him that he is worthless and says they tell him to kill himself. Patient reports depressed mood, feelings of hopelessness and helplessness, poor sleep and poor appetite. He denies any manic symptoms. He reports auditory and paranoia but denies any visual hallucinations. Patient reports withdrawal symptoms including abdominal cramps, anxiety, headaches and sweating. Social hx: Lives with girlfriend. Patient states he is eating ok. He does not consume alcohol but admits to 10 bags of heroin by IV/day and last used ye sterday. Patient is not currently working. Past Medical: Denies Allergies: denies Surgery: Tonsillectomy Hospitalizations: 3x Psychiatric hospitalizations at [facility] Family hx: Denies Medications: Remeron 30mg Consultations:: List each consultation separately and include: 1. Reason for request. 2. Findings. 3. Follow-up Summary of Hospital Course include:: 1. Description of specific treatment plan utilized for patients during their course of treatmen. 2. Summarize the time- course for resolution of acute symptoms and/or regressed behaviors. 3. Describe issues identified and worked on during hospitalization. 4. Describe medication utilized. 5. Describe medical problems identified and treated. 6. Reassessment of suicide risk Summary of Hospital Course: During the course of his stay, patient (pt) started progressively improving but next day he became increasingly irritable and demanded to get signed out AMA. He said he will lose his job and he doesn't want to happen this. However, patient denied any feelings of hopelessness, helplessness, and worthlessness, denied any problem with the sleep or appetite, denied suicidal ideation or homicidal ideation. Pt denied any auditory or visual hallucinations. He denied any withdrawal symptoms. - Diagnosis (1) Depressive disorder Status: Acute (2) Drug abuse Status: Acute - Final Diagnosis (DSM 5) Condition upon Discharge: GOOD DSM 5: Major depressive disorder recurrent severe with psychotic features Opioid withdrawal Opioid use disorder severe Disposition: AGAINST MEDICAL ADVICE Follow-up Treatment Plan: Followup: He was discharged to the [facility]. Education: Pt was educated and counseled about the risks and benefits of taking and not taking medications. Pt was educated and counseled about the risks of drinking and abusing drugs. Pt was educated and counseled to go to the ER or call 911 if pt develop suicidal ideation or homicidal ideation, worsening of symptoms or severe side effects of the meds. - Smoking Cessation Smoking Cessation Medication prescribed: No - Antipsychotic Medications Pt discharged on 2 or more routine antipsychotic medications: No
[2018-03-23] MEDS ORDERED: Influenza Vaccine 60 MCG/0.5 ML SYR (3 yr & up) IM ONE (10:00)
[2018-03-28 00:38] VITALS: O2SAT 97
== END 2018-03-22 11:00 | disposition left against medical advice (07) | DRG 751 ==
LOC: C.ER 20:00 → C.9E 22:28 → C.5E 22:44
PROVIDERS: ADMIT Psychiatry & Neurology Psychiatry; ATTEND Psychiatry & Neurology Psychiatry
PROC: GZ3ZZZZ Medication Management (ICD-10-PCS; principal; 2018-03-20)
PROC: HZ81ZZZ Medication Management for Substance Abuse Treatment, Methadone Maintenance (ICD-10-PCS; 2018-03-20)
PROC: HZ80ZZZ Medication Management for Substance Abuse Treatment, Nicotine Replacement (ICD-10-PCS; 2018-03-20)
PROC: GZHZZZZ Group Psychotherapy (ICD-10-PCS; 2018-03-20)
PROC: GZ56ZZZ Individual Psychotherapy, Supportive (ICD-10-PCS; 2018-03-20)
PROC: HZ46ZZZ Group Counseling for Substance Abuse Treatment, Psychoeducation (ICD-10-PCS; 2018-03-20)
DX: F33.3 Major depressive disorder, recurrent, severe with psychotic symptoms (principal); R45.851 Suicidal ideations; Z91.14 Patient's other noncompliance with medication regimen; F11.23 Opioid dependence with withdrawal; F31.9 Bipolar disorder, unspecified; F41.9 Anxiety disorder, unspecified; F17.210 Nicotine dependence, cigarettes, uncomplicated

== ENCOUNTER 2018-04-12 17:54 | Inpatient (IN) | payer MEDICAID, OTHER ==
[2018-04-12 17:54] VITALS: BMI 25.1
[2018-04-12 19:54] LABS: BASO % 0.3 % (0.0-2.0); EOS # 0.2 K/uL (0.0-0.7); EOS % 1.5 % (0.0-4.0); LYMPH # 1.6 K/uL (1.0-4.3); LYMPH % 16.4 % (20.0-40.0); MEAN CELL VOLUME 91.9 fL (80.0-94.0); MEAN CORPUSCULAR HEMOGLOBIN 31.8 pg (27.0-31.0); MEAN CORPUSCULAR HGB CONC 34.6 g/dL (33.0-37.0); MEAN PLATELET VOLUME 7.7 fL (7.2-11.7); MONO # 0.8 K/uL (0.0-0.8); MONO % 8.5 % (0.0-10.0); NEUT # 7.1 K/uL (1.8-7.0); NEUT % 73.3 % (50.0-75.0); RBC 4.4 Mil/uL (4.40-5.90); RED CELL DISTRIBUTION WIDTH 13.5 % (11.5-14.5); WHITE BLOOD COUNT 9.7 K/uL (4.8-10.8)
[2018-04-12 20:01] LABS: SQUAMOUS EPITHIAL < 1 /hpf (0-5); URINE BILIRUBIN NEGATIVE (NEGATIVE); URINE BLOOD NEGATIVE (NEGATIVE); URINE CLARITY Clear (Clear); URINE COLOR Yellow (YELLOW); URINE GLUCOSE (UA) NORMAL (Normal); URINE LEUKOCYTE ESTERASE NEG Leu/uL (Negative); URINE PROTEIN NEGATIVE (NEGATIVE)
--- NOTE | 2018-04-12 20:04 | C.PDOC ---
History Of Present Illness 42 y/o male presents to the ER complaining of feeling depressed for the past several days. Patient states that he has suicidal ideation and he has a plan to overdose on heroin. Patient reports that he uses heroin IV. Patient denies h aving homicidal ideation and active physical complaints. Time Seen by Provider: 04/12/18 19:27 Chief Complaint (Nursing): Psychiatric Evaluation History Per: Patient History/Exam Limitations: no limitations Onset/Duration Of Symptoms: Days Current Symptoms Are (Timing): Still Present Severity: Moderate Past Medical History Reviewed: Historical Data, Nursing Documentation, Vital Signs - Medical History PMH: Back Problems, Bipolar Disorder, Depression, Hepatitis (C) Denies: Diabetes, HTN, Chronic Kidney Disease, Seizures, Sexually Transmitted Disease Comment Only: HIV (Tested negative) Surgical History: No Surg Hx - [facility] Procedures DETOXIFICATION SERVICES FOR SUBSTANCE ABUSE TREATMENT (07/02/17) GROUP BARREL ASSEMBLY INSPECTOR FOR SUBSTANCE ABUSE TREATMENT, PSYCHOEDUCATION (03/20/18) GROUP BARREL ASSEMBLY INSPECTOR FOR SUBSTANCE ABUSE, COGNITIVE BEHAVIORAL (07/02/17) GROUP PSYCHOTHERAPY (03/20/18) INDIV PSYCHOTHERAPY FOR SUBSTANCE ABUSE TREATMENT, SUPPORT (07/02/17) INDIV PSYCHOTHERAPY FOR SUBSTANCE ABUSE, COGNITIV BEHAVIORAL (07/02/17) INDIV PSYCHOTHERAPY FOR SUBSTANCE ABUSE, PSYCHOEDUCATION (07/02/17) INDIVIDUAL PSYCHOTHERAPY, COGNITIVE-BEHAVIORAL (07/02/17) INDIVIDUAL PSYCHOTHERAPY, SUPPORTIVE (03/20/18) INJECT/INFUSE NEC (09/11/14) MEDICATION MANAGEMENT (03/20/18) MEDS MGMT FOR SUBSTANCE ABUSE TREATMENT, METHADONE MAINT (03/20/18) MEDS MGMT FOR SUBSTANCE ABUSE TREATMENT, NICOTINE REPLACE (03/20/18) Family History: States: No Known Family Hx - Social History Hx Tobacco Use: Yes Hx Alcohol Use: No Hx Substance Use: No - Immunization History Hx Tetanus Toxoid Vaccination: No Hx Influenza Vaccination: No Hx Pneumococcal Vaccination: No Review Of Systems Except As Marked, All Systems Reviewed And Found Negative. Constitutional: Negative for: Fever, Chills Psych: Positive for: Depression, Suicidal ideation Physical Exam - Physical Exam Appears: Other (flat affect) Skin: Normal Color, Warm, Dry Head: Atraumatic, Normacephalic Eye(s): bilateral: Normal Inspection Nose: Normal Oral Mucosa: Moist Neck: Supple Chest: Symmetrical Cardiovascular: Rhythm Regular Respiratory: Normal Breath Sounds, No Rales, No Rhonchi, No Wheezing Gastrointestinal/Abdominal: Normal Exam, Soft, No Tenderness, No Guarding, No Rebound Neurological/Psych: Oriented x3, Normal Speech ED Course And Treatment - Laboratory Results Result Diagrams: 04/12/18 19:51 04/12/18 19:51 O2 Sat by Pulse Oximetry: 96 (RA) Pulse Ox Interpretation: Normal Progress Note: Blood work, UA, UDS ordered and reviewed. 9:15pm- Patient medically cleared, pending crisis. Disposition - Disposition Forms: [employer] (Georgian) - Scribe Statement The provider has reviewed the documentation as recorded by the Shaguftaibe Merlin Cardenas Provider Attestation: All medical record entries made by the Scribe were at my direction and personall y dictated by me. I have reviewed the chart and agree that the record accurately reflects my personal performance of the history, physical exam, medical decision making, and the department course for this patient. I have also personally directed, reviewed, and agree with the discharge instructions and disposition.
[2018-04-12 20:09] LABS: BARBITURATES, UR NEGATIVE (NEGATIVE); BENZODIAZEPINES, UR NEGATIVE (NEGATIVE); PHENCYCLIDINE, UR NEGATIVE (NEGATIVE)
[2018-04-12 20:11] LABS: ALB/GLOB RATIO 1.2 (1.0-2.1); ALBUMIN 3.8 g/dL (3.5-5.0); ALT/SGPT 15 U/L (21-72); AST/SGOT 21 U/L (17-59); BLOOD UREA NITROGEN 12 mg/dL (9-20); CALCIUM 8.5 mg/dl (8.6-10.4); GFR NON-AFRICAN AMERICAN > 60
[2018-04-12 20:13] LABS: OPIATES, UR POSITIVE (NEGATIVE)
[2018-04-12 22:36] VITALS: O2SAT 98
[2018-04-12] MEDS ORDERED: Aluminum Hydroxide/Magnesium Hydroxide Susp (30 mL) PO PRN (23:20)
--- NOTE | 2018-04-13 00:35 | PCM.BM ---
<Marion Waite - Last Filed: 04/13/18 00:32> Treatment Plan Problems - Problems identified on initial assessmt Depression Date Initiated: 04/13/18 Time Initiated: 00:32 Assessment reference: NA Status: Active Comment: ongoing depression Substance Abuse Date Initiated: 04/13/18 Time Initiated: 00:33 Assessment reference: NA Status: Active Comment: multiple substance abuse Treatment assets and liabiliti Patient Assests: adapts well, cooperative, self-reliant, ADL independent, physically healthy, negotiates basic needs, cognitively intact Patient Liabilities: financial problems, poor support system, substance abuse - Milieu Protocol Maintain good personal hygiene: daily Encourage regular showers, daily Remind patient to perform daily oral care, every shift Assist patient to perform ADL's Conduct patient checks and document Observation sheet: Q15 minutes Maintain personal safety: every shift Educate patient to report safety concerns to staff, every shift Monitor environment for contraband/sharps Medication safety: Monitor for expected outcome, potential side effects: every shift, Assess barriers to learning: every shift, Assess readiness for medication education: every shift <Marine Payne - Last Filed: 04/13/18 12:58> Family Contact Family involvement: Famliy/SO not involved - Goals for Treatment Patient goals for treatment: "I want to go to [facility] Discharge/Continuing Care - Education Needs Education Needs: Patient Medication, Patient Coping Skills, Patient Placement options, Patient Community resources - Discharge Discharge Criteria: Tolerates medication w/o severe side effects, No longer exhibiting s/s of withdrawal, Reduction of target symptoms Discharge to:: Substance Abuse Rehab - Treatment Team Participation Discussed with Family/SO: No Was Patient/Family/SO present at Treatment Team Meeting: Yes <Graham Jenkins - Last Filed: 04/14/18 09:07> - Diagnosis (1) Depressive disorder Status: Acute Interventions: 04/14/18 09:06 * Assess/adjust medications daily and /or as needed * See patient on an individual basis 7x/week to assess symptoms of depression * Monitor for side effects & effectiveness of medications * (2) Opiate dependence Status: Acute Interventions: 04/14/18 09:06 * Assess 7x/week regarding severity of withdrawal * Educate regarding risks, benefits, side effects and alternatives of medications * Use Motivational Interviewing for abstinence * Use CBT for relapse prevention * Medication management for withdrawal symptoms * Encourage medication assisted treatment *
[2018-04-13] MEDS ORDERED: Pneumococcal 23-Valent Vaccine IM ONE (03:10)
--- NOTE | 2018-04-13 12:34 | PCM.PSYCH ---
Initial Psychiatric Evaluation - Initial Psychiatric Evaluation Type of Admission: Voluntary Legal Status: Capacity Chief Complaint (in patient's own words): "Depressed" History of Present Illness and Precipitating Events: The pt is seen, chart reviewed, case discussed with staff. Patient is a 42 year old male that is currently single, lives alone, and is unemployed. Patient came to the hospital yesterday, after he intentionally overdosed on heroin in suicide attempt. He states that he has been thinking about suicide for a couple of weeks. He denies telling anyone or writing a suicide note. He had a prior suicide attempt in June. He describes depressive symptoms as well as hearing voices telling him to hurt himself. He was here recently but left AMA. Patient currently does 10 bags of heroin a day. His method of use is injection. He started abusing heroin at 17 years old. He also uses cocaine and cannabis frequently. Denies using other drugs or alcohol. Patient smokes a pack a day, started when he was 15. Past Psych Hx: Patient states that he has been depressed all his life. He denies any prior trauma or treatment. Past Family Psych Hx: Denies. Medical Hx: denies Current Medications: Active Medications Generic Name Dose Route Start Last Admin Trade Name Freq PRN Reason Stop Dose Admin Al Hydrox/Mg Hydrox/Simethicone 30 ml 04/12/18 23:20 Maalox 30 Ml PO TID PRN Indigestion / Heartburn Clonidine HCl 0.1 mg 04/12/18 23:20 Catapres PO Q4 PRN COWS Score More or Equal to 5 Hydroxyzine HCl 50 mg 04/12/18 23:15 Atarax PO Q6H PRN Anxiety Ibuprofen 600 mg 04/12/18 23:15 Motrin Tab PO Q6H PRN Pain, moderate (4-7) Loperamide HCl 2 mg 04/12/18 23:20 Imodium PO Q8 PRN Diarrhea Ondansetron HCl 4 mg 04/12/18 23:20 Zofran Tab PO Q8 PRN Nausea/Vomiting Pneumococcal Polyvalent Vaccine 0.5 ml 04/15/18 10:00 Pneumovax 23 Vaccine IM 04/15/18 10:01 .ONCE ONE Trazodone HCl 100 mg 04/12/18 23:15 Desyrel PO HS PRN Insomnia Past Psychiatric History - Past Psychiatric History Previous Treatment History: Inpatient Pertinent Medical Hx (Current Medical&Sleep Prob, Allergies): Allergies Allergy/AdvReac Type Severity Reaction Status Date / Time shellfish derived Allergy Severe SWELLING Verified 03/20/18 20:13 seafood Allergy Severe SWELLING Uncoded 03/20/18 20:13 No Known Home Med 04/12/18 Review of Systems - Neurological Neurological: UNREMARKABLE - Psychiatric Psychiatric: Abnormal Sleep Pattern, Anhedonia, Anxiety, Depression, Difficulty Concentrating. absent: Hallucinations, Homicidal Ideation, Paranoia, Suicidal Ideation Mental Status Examination - Personal Presentation Personal Presentation: Looks stated age - Affect Affect: Constricted - Motor Activity Motor Activity: Calm - Reliability in Providing Information Reliability in Providing Information: Good - Speech Speech: Organized - Mood Mood: Depressed, Anxious - Formal Thought Process Formal Thought Process: No Impairment - Cognitive Functions Orientation: Person, Place, Situation, Time Sensorium: Alert Attention/Concentration: Easily distracted Estimate of Intelligence: Average Judgement: Intact, as evidence by: Insight regarding need for hospitalization Memory: Recent intact, as evidence by: Ability to recall events of the day, Remote intact, as evidenced by: Ability to recall historical events - Risk Risk: Withdrawal, Diminished functioning - Strength & Assets Inventory Strength & Assets Inventory: Cooperative - Limitations Limitations: Other DSM 5 DX - DSM 5 DSM 5 Diagnosis: Major Depressive Disorder, recurrent, severe. Opioid Use Disorder, severe. Opioid withdrawal Cocaine use d/o - severe Cannabis use d/o - severe - Recommended/Plan of Treatment Treatment Recommendations and Plan of Treatment: Remeron for depression Will monitor AHs, likely transient, and will use abilify if persist. As needed medications All risks, benefits and alternatives of the meds discussed, and the pt agreed and understood. Attend groups and activities Psychoeducation and support daily Encourage compliance with meds and after care Refer to outpatient program, [facility] . 33 min Projected ELOS: 4-5 days Prognosis: good w treatment
--- NOTE | 2018-04-14 15:10 | PCM.PYCHPN ---
Psychiatric Progress Note - Psychiatric Progress Note Patient seen today, length of contact: 15 minutes Patient Chief Complaint: I'm feeling little better. Problems Identified/Issues Discussed: Patient seen, chart reviewed, case discussed with the staff. Issues related to illness and treatment were discussed with the patient and staff. Reported compliant with treatment with no adverse effects. Tolerating treatment very well. Reported feeling little better. Awake, alert and oriented 3. Calm and cooperative with good eye contact. Mood reported as okay. Affect appropriate. Treatment discussed with the patient. Needs more time for stabilization. Aftercare discussed with the patient. Denied any delusions, auditory or visual hallucinations, suicidal ideations or homicidal ideations at the time of evaluation. Medical Problems: None reported Diagnostic Results: Reviewed DSM 5 Symptoms Update: Some improvement with treatment Medication Change: No Medical Record Reviewed: Yes Mental Status Examination - Cognitive Function Orientation: Person, Place, Situation, Time Memory: Intact Attention: WNL Concentration: WNL Association: WN Fund of Knowledge: [facility] Decription of patient's judgement and insights: Fair - Mood Mood: Anxious - Affect Affect: Other (Appropriate) - Speech Speech: Appropriate - Formal Thought Process Formal Thought Process: No Impairment Psychotic Thoughts and Behaviors: None - Suicidal Ideation Suicidal Ideation: No - Homicidal Ideation Homicidal Ideation: No Goal/Treatment Plan - Goal/Treatment Plan Need for Continued Stay: Remain at risks for inpatient hospitalization, Discharge may exacerbated symptoms, Severe functional impairment Progress Toward Problem(s) and Goals/Treatment Plan: Patient education. Supportive therapy. CBT for relapse prevention. LA for abstinence. Continue treatment as before. Estimated Date of D/C: 04/18/18 - Smoking Cessation Smoking Cessation Initiated: No
[2018-04-15] MEDS ORDERED: Pneumococcal 23-Valent Vaccine IM ONE (10:00)
--- NOTE | 2018-04-15 12:00 | PCM.PYCHPN ---
Psychiatric Progress Note - Psychiatric Progress Note Patient seen today, length of contact: 15 min Patient Chief Complaint: "I'm better but so much" Problems Identified/Issues Discussed: The pt is seen, chart reviewed, case discussed with staff. The pt is compliant with medications and reports no side-effects. Symptoms are improving but needs more time to stabilize. Pt attends groups and activities. Support given, psycho-education provided. After care discussed. Medication Change: Yes (etox changes daily) Medical Record Reviewed: Yes Mental Status Examination - Cognitive Function Orientation: Person, Place, Situation, Time Memory: Intact Attention: WNL Concentration: WNL Association: WNL Fund of Knowledge: WN - Mood Mood: Depressed, Anxious - Affect Affect: Constricted - Speech Speech: Appropriate - Formal Thought Process Formal Thought Process: No Impairment - Suicidal Ideation Suicidal Ideation: No - Homicidal Ideation Homicidal Ideation: No Goal/Treatment Plan - Goal/Treatment Plan Need for Continued Stay: Discharge may exacerbated symptoms, Severe functional impairment Progress Toward Problem(s) and Goals/Treatment Plan: Remeron for depression Will monitor AHs, likely transient, and will use abilify if persist. As needed medications All risks, benefits and alternatives of the meds discussed, and the pt agreed and understood. Attend groups and activities Psychoeducation and support daily Encourage compliance with meds and after care Refer to [facility]. Estimated Date of D/C: 04/18/18
[2018-04-15] MEDS ORDERED: Influenza Vaccine 60 MCG/0.5 ML SYR (3 yr & up) IM ONE (15:00)
--- NOTE | 2018-04-16 19:11 | PCM.PYCHPN ---
Psychiatric Progress Note - Psychiatric Progress Note Patient seen today, length of contact: 15 minutes Patient Chief Complaint: I'm feeling better. Problems Identified/Issues Discussed: Patient seen, chart reviewed, case discussed with the staff. Issues related to illness and treatment were discussed with the patient and staff. Reported compliant with treatment with no adverse effects. Tolerating treatment very well. Reported feeling better. His sleep is also better now. Awake, alert and oriented 3. Calm and cooperative with good eye contact. Mood reported as okay. Affect appropriate. Treatment discussed with the patient. Needs more time for stabilization. Aftercare discussed with the patient. Denied any delusions, auditory or visual hallucinations, suicidal ideations or homicidal ideations at the time of evaluation. Medical Problems: None reported Diagnostic Results: Reviewed DSM 5 Symptoms Update: Some improvement with treatment. Medication Change: No Medical Record Reviewed: Yes Mental Status Examination - Cognitive Function Orientation: Person, Place, Situation, Time Memory: Intact Attention: WNL Concentration: WNL Association: WNL Fund of Knowledge: WN Decription of patient's judgement and insights: Fair - Mood Mood: Anxious (Less than before) - Affect Affect: Other (Appropriate) - Speech Speech: Appropriate - Formal Thought Process Formal Thought Process: No Impairment Psychotic Thoughts and Behaviors: None - Suicidal Ideation Suicidal Ideation: No - Homicidal Ideation Homicidal Ideation: No Goal/Treatment Plan - Goal/Treatment Plan Need for Continued Stay: Remain at risks for inpatient hospitalization, Discharge may exacerbated symptoms, Severe functional impairment Progress Toward Problem(s) and Goals/Treatment Plan: Patient education. Supportive therapy. CBT for relapse prevention. SD for abstinence. Continue treatment as before. Estimated Date of D/C: 04/18/18 - Smoking Cessation Smoking Cessation Initiated: No
[2018-04-17 06:51] VITALS: BP 86/53; PULSE 55; RESP 20; TEMP 98.1
--- NOTE | 2018-04-17 11:33 | PCM.PYCHDC ---
Mental Status Examination - Mental Status Examination Orientation: Person Discharge Summary - Discharge Note Consultations:: List each consultation separately and include: 1. Reason for request. 2. Findings. 3. Follow-up Summary of Hospital Course include:: 1. Description of specific treatment plan utilized for patients during their course of treatmen. 2. Summarize the time- course for resolution of acute symptoms and/or regressed behaviors. 3. Describe issues identified and worked on during hospitalization. 4. Describe medication utilized. 5. Describe medical problems identified and treated. 6. Reassessment of suicide risk Summary of Hospital Course: The pt is seen, chart reviewed, case discussed with staff. Patient is a 42 year old male that is currently single, lives alone, and is unemployed. Patient came to the hospital yesterday, after he intentionally overdosed on heroin in suicide attempt. He states that he has been thinking about suicide for a couple of weeks. He denies telling anyone or writing a suicide note. He had a prior suicide attempt in June. He describes depressive symptoms as well as hearing voices telling him to hurt himself. He was here recently but left AMA. Patient currently does 10 bags of heroin a day. His method of use is injection. He started abusing heroin at 17 years old. He also uses cocaine and cannabis frequently. Denies using other drugs or alcohol. Patient smokes a pack a day, started when he was 15. Past Psych Hx: Patient states that he has been depressed all his life. He denies any prior trauma or treatment. Past Family Psych Hx: Denies. Medical Hx: denies - Diagnosis (1) Depressive disorder Current Visit: No Status: Acute (2) Opiate dependence Current Visit: No Status: Acute - Final Diagnosis (DSM 5) Condition upon Discharge: GOOD Disposition: HOME/ ROUTINE Follow-up Treatment Plan: Remeron for depression Will monitor AHs, likely transient, and will use abilify if persist. As needed medications All risks, benefits and alternatives of the meds discussed, and the pt agreed and understood. Attend groups and activities Psychoeducation and support daily Encourage compliance with meds and after care Refer to [facility]. Prescriptions/Medication Reconciliation: Mirtazapine [Remeron] 30 mg PO HS #30 tab traZODone [Desyrel] 100 mg PO HS PRN #30 tab PRN Reason: Insomnia
== END 2018-04-17 12:10 | disposition home or self-care (01) | DRG 751 ==
LOC: C.ER 17:54 → C.5E 22:54
PROVIDERS: ADMIT Psychiatry & Neurology Psychiatry; ATTEND Psychiatry & Neurology Psychiatry
PROC: GZ56ZZZ Individual Psychotherapy, Supportive (ICD-10-PCS; principal; 2018-04-12)
DX: F33.2 Major depressive disorder, recurrent severe without psychotic features (principal); F11.23 Opioid dependence with withdrawal; F17.210 Nicotine dependence, cigarettes, uncomplicated; F12.90 Cannabis use, unspecified, uncomplicated; F14.90 Cocaine use, unspecified, uncomplicated

== ENCOUNTER 2018-08-28 16:20 | Emergency (ER) | payer MEDICAID, OTHER ==
[2018-08-28 16:20] VITALS: BMI 25.1
--- NOTE | 2018-08-28 16:30 | C.PDOC ---
History Of Present Illness Pt is a 42 yr old male who is here today due to heroin overdose. Pt's family called 911 because pt was found unresponsive in the bathroom. As per EMS, the patient's girlfriend thinks the patient has a heroin problem. Upon arrival, the BLS unit was the first to arrive to the scene and found patient to be unconscious, cyanotic, constricted pupils and apneic and gave 1mg intranasal narcan up each nostril to no avail. Then the ALS crew arrived an inserted an IV and give 0.8 mg Narcan IV. The patient eventually woke up and admitted to me and the ED nurses that he snorted 1 bag of heroin. The patient did have to be ventilated via bag-valve mask for about 10-15 minutes by EMS prior to arrival. Pt states he also smoked some marijuana but denies any other drug use. I asked pt if he would be interested in Detox and he said "no". PMD: Dr. Gaines / Time Seen by Provider: 08/28/18 16:28 Chief Complaint (Nursing): Substance Abuse History Per: Patient Onset/Duration Of Symptoms: Mins Past Medical History Reviewed: Historical Data, Nursing Documentation, Vital Signs - Medical History PMH: Back Problems, Bipolar Disorder, Depression, Hepatitis (C) Comment Only: HIV (Tested negative) - [facility] Procedures DETOXIFICATION SERVICES FOR SUBSTANCE ABUSE TREATMENT (07/02/17) GROUP GLAZIER STAINED GLASS FOR SUBSTANCE ABUSE TREATMENT, PSYCHOEDUCATION (03/20/18) GROUP GLAZIER STAINED GLASS FOR SUBSTANCE ABUSE, COGNITIVE BEHAVIORAL (07/02/17) GROUP PSYCHOTHERAPY (03/20/18) INDIV PSYCHOTHERAPY FOR SUBSTANCE ABUSE TREATMENT, SUPPORT (07/02/17) INDIV PSYCHOTHERAPY FOR SUBSTANCE ABUSE, COGNITIV BEHAVIORAL (07/02/17) INDIV PSYCHOTHERAPY FOR SUBSTANCE ABUSE, PSYCHOEDUCATION (07/02/17) INDIVIDUAL PSYCHOTHERAPY, COGNITIVE-BEHAVIORAL (07/02/17) INDIVIDUAL PSYCHOTHERAPY, SUPPORTIVE (04/12/18) INJECT/INFUSE NEC (09/11/14) MEDICATION MANAGEMENT (03/20/18) MEDS MGMT FOR SUBSTANCE ABUSE TREATMENT, METHADONE MAINT (03/20/18) MEDS MGMT FOR SUBSTANCE ABUSE TREATMENT, NICOTINE REPLACE (03/20/18) Family History: States: Unknown Family Hx - Social History Hx Tobacco Use: No Hx Alcohol Use: No Hx Substance Use: Yes (heroin and THC) - Immunization History Hx Tetanus Toxoid Vaccination: No Hx Influenza Vaccination: No Hx Pneumococcal Vaccination: No Review Of Systems Except As Marked, All Systems Reviewed And Found Negative. Constitutional: Negative for: Fever Cardiovascular: Negative for: Chest Pain Respiratory: Negative for: Shortness of Breath Gastrointestinal: Negative for: Vomiting Physical Exam - Physical Exam Appears: No Acute Distress, Other (shivering) Skin: Other (tattoos) Head: Atraumatic Eye(s): bilateral: Normal Inspection, PERRL (at 4 mm each (s/p receiving Narcan)), EOMI Ear(s): Bilateral: Normal Nose: Normal Oral Mucosa: Moist Tongue: Normal Appearing Lips: Normal Appearing Throat: Normal Neck: Normal, Normal ROM Lymphatic: Deferred Chest: Symmetrical Cardiovascular: Rhythm Regular Respiratory: Normal Breath Sounds, No Rales, No Rhonchi, No Wheezing Gastrointestinal/Abdominal: Bowel Sounds, Soft, No Tenderness Rectal: Deferred Male Genital: Normal Inspection Extremity: Bilateral: Atraumatic, Normal ROM Neurological/Psych: Oriented x3, Normal Motor, Normal Sensation ED Course And Treatment - Laboratory Results Result Diagrams: 08/28/18 16:52 08/28/18 16:52 - Radiology CXR: Interpreted by Me, Read By Radiologist CXR Interpretation: Yes: Other (opacity in RLL--possible pneumonia) Medical Decision Making Medical Decision Making: Initial Impression: Heroin overdose s/p rescue with Narcan Initial Plan: Will monitor and check labs Progress note: 6:38 PM - Pt with no further episodes of apnea. Patient is resting comfortably. CXR shows possible pneumonia plus with high WBC--antibiotics for pneumonia ordered. / Disposition - Disposition Disposition Time: 17:48 Condition: IMPROVED Instructions: Pneumonia in Adults, Narcotic Overdose Forms: [employer] ([employer]) - Clinical Impression Clinical Impression: Heroin overdose, Pneumonia Physician Patient Turnover Patient Signed Over To: Damian Deleon DO Handoff Comments: Endorsed at 7:[address] Deleon. Sign out is to continue to observe patient until fully alert. Recommend d/c on abx that cover aspiration pneumonia.
[2018-08-28] MEDS ORDERED: Sodium Chloride 0.9% 1,000 ML IV ONE (16:35)
[2018-08-28 16:56] LABS: BASO % 0.1 % (0.0-2.0); EOS % 0.1 % (0.0-4.0); LYMPH # 0.6 K/uL (1.0-4.3); LYMPH % 3.7 % (20.0-40.0); MEAN CORPUSCULAR HEMOGLOBIN 31.4 pg (27.0-31.0); MEAN CORPUSCULAR HGB CONC 33.7 g/dL (33.0-37.0); MEAN PLATELET VOLUME 7.8 fL (7.2-11.7); MONO # 0.9 K/uL (0.0-0.8); NEUT # 15.7 K/uL (1.8-7.0); NEUT % 91.1 % (50.0-75.0); PLATELET COUNT 199 K/uL (130-400); RBC 5.42 Mil/uL (4.40-5.90); RED CELL DISTRIBUTION WIDTH 14.8 % (11.5-14.5)
[2018-08-28 17:04] LABS: WHITE BLOOD COUNT 17.2 K/uL (4.8-10.8)
[2018-08-28 17:11] LABS: ALB/GLOB RATIO 1.3 (1.0-2.1); ALBUMIN 4.6 g/dL (3.5-5.0); AST/SGOT 22 U/L (17-59); BLOOD UREA NITROGEN 17 mg/dL (9-20); CALCIUM 9.1 mg/dl (8.6-10.4); GFR NON-AFRICAN AMERICAN 56
[2018-08-28 17:18] LABS: ALT/SGPT < 6 U/L (21-72)
[2018-08-28 17:43] LABS: SQUAMOUS EPITHIAL < 1 /hpf (0-5); URINE BACTERIA RARE (<OCC); URINE BILIRUBIN NEGATIVE (NEGATIVE); URINE BLOOD NEGATIVE (NEGATIVE); URINE CLARITY Hazy (Clear); URINE COLOR Yellow (YELLOW); URINE GLUCOSE (UA) 1+ mg/dL (Normal); URINE LEUKOCYTE ESTERASE NEG Leu/uL (Negative); URINE PROTEIN 1+ mg/dL (NEGATIVE); URINE UROBILINOGEN NORMAL mg/dL (0.2-1.0)
[2018-08-28 17:48] LABS: BARBITURATES, UR NEGATIVE (NEGATIVE); BENZODIAZEPINES, UR NEGATIVE (NEGATIVE); PHENCYCLIDINE, UR NEGATIVE (NEGATIVE)
[2018-08-28 17:49] LABS: OPIATES, UR POSITIVE (NEGATIVE)
--- NOTE | 2018-08-28 18:04 | RAD ---
Date of service: 08/28/2018 HISTORY: possible aspiration COMPARISON: Comparison is made with 04/15/2017 TECHNIQUE: 1 view obtained. FINDINGS: LUNGS: Hazy opacity noted at the right lower lung may represent pneumonia or aspiration. PLEURA: No significant pleural effusion identified, no pneumothorax apparent. CARDIOVASCULAR: No aortic atherosclerotic calcification present. Normal cardiac size. No pulmonary vascular congestion. OSSEOUS STRUCTURES: No significant abnormalities. VISUALIZED UPPER ABDOMEN: Normal. OTHER FINDINGS: None. IMPRESSION: Hazy opacity noted at the right lower lung may represent pneumonia or aspiration.
[2018-08-28] MEDS ORDERED: cefTRIAXone IV 1 gm in Dextros 50 ML IV STA (18:31)
[2018-08-28 18:39] LABS: LYMPHOCYTE 2 % (20-40); MONOCYTE 5 % (0-10); NEUTROPHIL 93 % (50-75); PLATELET ESTIMATE NORMAL (NORMAL); TOTAL CELLS COUNTED 100
[2018-08-28] MEDS ORDERED: metroNIDAZOLE IV 500 mg/100 ml 500 MG/100 ML BAG IV ONE (18:48)
[2018-08-28] MEDS ORDERED: metroNIDAZOLE IV 500 mg/100 ml 500 MG/100 ML BAG ONE (18:57)
[2018-08-28 19:30] VITALS: BP 104/70; PULSE 88; RESP 21; TEMP 97.7; O2SAT 99
== END 2018-08-28 19:38 | disposition home or self-care (01) ==
LOC: C.ER 16:20
DX: T40.1X1A Poisoning by heroin, accidental (unintentional), initial encounter (principal); Y92.9 Unspecified place or not applicable; J18.9 Pneumonia, unspecified organism; F31.9 Bipolar disorder, unspecified; F17.210 Nicotine dependence, cigarettes, uncomplicated
CPT/HCPCS: 71045; 80053; 80320; 80324; 80345; 80346; 80349; 80353; 80358; 80361; 81001; 83735; 83992; 85025; 96365; 96367; 96375; 99285; J0696; J2405; J7030